=== PATIENT | female | born 1940 | race Caucasian/White ===

== ENCOUNTER 2018-10-28 04:48 | Inpatient (IN) | payer OTHER, MEDICARE ==
[~2018-10-28] VITALS: Ht 172.7 cm; Wt 76.7 kg
[2018-10-28 04:55] VITALS: Ht 172.7 cm; Wt 76.7 kg
[2018-10-28 05:49] LABS: BASOPHIL % 0.4 % (0-2); PLATELET COUNT 258 x10^3mcL (130-400); RED CELL DISTRIBUTION WIDTH 13.4 % (11.5-14.5)
[2018-10-28 05:55] LABS: CARBON DIOXIDE 27.8 mmol/L (21-32); CHLORIDE SERUM 105 mmol/L (98-107); CREATININE SERUM 1.1 mg/dL (0.6-1.0); GLUCOSE SERUM 108 mg/dL (74-106); POTASSIUM SERUM 3.7 mmol/L (3.5-5.1); SODIUM SERUM 143 mmol/L (136-145)
[2018-10-28 06:01] LABS: ALBUMIN 3.4 g/dL (3.4-5.0); ALKALINE PHOSPHATASE 92 U/L (46-116); ALT/SGPT 17 U/L (14-59); AST/SGOT 17 U/L (15-37); BILIRUBIN TOTAL 0.38 mg/dL (0.20-1.00); LIPASE 270 IU/L (73-393); TOTAL PROTEIN, SERUM 7.5 g/dL (6.4-8.2)
[2018-10-28] MEDS ORDERED: LIPI20 (08:59)
[2018-10-28] MEDS ORDERED: FLUOXETINE20 M3 (08:59)
[2018-10-28] MEDS ORDERED: NOR5 (08:59)
[2018-10-28] MEDS ORDERED: GABAPENTIN100 M2 (08:59)
[2018-10-28] MEDS ORDERED: GOOD SENSE OMEP20 MG (09:00)
[2018-10-28] MEDS ORDERED: MULTI-VITAMINS1 TAB (09:00)
[2018-10-28] MEDS ORDERED: SODIUM BICARBO650 MG (09:00)
[2018-10-28] MEDS ORDERED: COUMADIN1 MG (09:00)
[2018-10-28] MEDS ORDERED: SOTALOL HCL80 MG (09:00)
[2018-10-28 09:35] LABS: T3 TOTAL 0.95 ng/mL
[2018-10-28 09:45] LABS: CHOLESTEROL/HDL RATIO 3.7; MAGNESIUM 1.7 mg/dL (1.8-2.4); PHOSPHOROUS 3.5 mg/dL (2.5-4.9)
[2018-10-28 09:53] LABS: FREE T4 1.1 ng/dL (0.76-1.46); T4(THYROXINE) 8.5 ug/dL (4.7-13.3)
[2018-10-28 11:27] VITALS: BP 134/49
[2018-10-28 12:37] VITALS: BP 134/49
[2018-10-28 13:21] VITALS: BP 141/66
[2018-10-28 16:55] VITALS: BP 155/67
[2018-10-28 21:08] VITALS: BP 158/59
[2018-10-29 06:18] VITALS: BP 157/64
[2018-10-29 06:18] LABS: PLATELET COUNT 248 x10^3mcL (130-400)
[2018-10-29 07:24] LABS: CALCIUM 8.1 mg/dL (8.5-10.1); CARBON DIOXIDE 28.6 mmol/L (21-32); CHLORIDE SERUM 111 mmol/L (98-107); CREATININE SERUM 0.7 mg/dL (0.6-1.0); GLUCOSE SERUM 94 mg/dL (74-106); SODIUM SERUM 146 mmol/L (136-145)
[2018-10-29 09:27] VITALS: BP 154/63
[2018-10-29 11:21] LABS: BAND NEUTROPHIL 0 % (0-10); BASOPHIL 0 % (0-2); MONOCYTE 10 % (0-7); PLATELET MORPHOLOGY PLATELETS NORMAL; SEGMENTED NEUTROPHILS 40 % (37-75); rbc morphology (normal/abnorm) NORMAL (NORMAL)
[2018-10-29 12:33] VITALS: BP 180/70
[2018-10-29 13:35] VITALS: BP 169/72
[2018-10-29 16:58] VITALS: BP 167/84
[2018-10-29 20:34] VITALS: BP 139/72
[2018-10-30 05:48] VITALS: BP 161/66
[2018-10-30 07:07] LABS: MAGNESIUM 1.6 mg/dL (1.8-2.4); PHOSPHOROUS 2.5 mg/dL (2.5-4.9)
[2018-10-30 09:00] VITALS: BP 157/91
[2018-10-30 09:01] VITALS: BP 157/91
[2018-10-30 10:37] VITALS: BP 157/91
== END 2018-10-30 11:55 | disposition home or self-care (01) | DRG 390 ==
LOC: ED 04:48 → MU 08:38 → DU 08:38
PROVIDERS: Emergency Medicine; ADMIT General Practice
DX: K56.7 Ileus, unspecified (principal); K56.609 Unspecified intestinal obstruction, unspecified as to partial versus complete obstruction; K21.9 Gastro-esophageal reflux disease without esophagitis; I48.2 Chronic atrial fibrillation; I11.9 Hypertensive heart disease without heart failure; I25.10 Atherosclerotic heart disease of native coronary artery without angina pectoris; E78.5 Hyperlipidemia, unspecified; Z79.01 Long term (current) use of anticoagulants; Z95.5 Presence of coronary angioplasty implant and graft
CPT/HCPCS: 83880; 84439; C9113; J2270; J2405; J3475; J7030; J7620; Q0092

== ENCOUNTER 2019-01-10 19:08 | Inpatient (IN) | payer OTHER, MEDICARE ==
[~2019-01-10] VITALS: Ht 170.2 cm; Wt 80.7 kg
[~2019-01-10 19:08] MED LIST: COUMADIN1 MG; FLUOXETINE20 M3; GABAPENTIN100 M2; GOOD SENSE OMEP20 MG; LIPI20; MULTI-VITAMINS1 TAB; NOR5; SODIUM BICARBO650 MG; SOTALOL HCL80 MG
[2019-01-10 20:02] LABS: BASOPHIL % 0.2 % (0-2); PLATELET COUNT 307 x10^3mcL (130-400)
[2019-01-10 20:08] LABS: CALCIUM 9.4 mg/dL (8.5-10.1); CARBON DIOXIDE 26.6 mmol/L (21-32); CHLORIDE SERUM 106 mmol/L (98-107); CREATININE SERUM 1.2 mg/dL (0.6-1.0); GLUCOSE SERUM 115 mg/dL (74-106); POTASSIUM SERUM 4.3 mmol/L (3.5-5.1); SODIUM SERUM 141 mmol/L (136-145)
[2019-01-10 20:13] LABS: ALBUMIN 3.9 g/dL (3.4-5.0); ALKALINE PHOSPHATASE 113 U/L (46-116); ALT/SGPT 22 U/L (14-59); AST/SGOT 30 U/L (15-37); BILIRUBIN TOTAL 0.28 mg/dL (0.20-1.00)
[2019-01-10 20:36] LABS: UA SPECIFIC GRAVITY 1.025 (1.005-1.035); microscopic required? YES; urine erythrocyte NEGATIVE (NEGATIVE)
[2019-01-10 22:15] LABS: CHOLESTEROL/HDL RATIO 3.6; MAGNESIUM 1.8 mg/dL (1.8-2.4); PHOSPHOROUS 4.6 mg/dL (2.5-4.9)
[2019-01-10 22:18] LABS: T3 TOTAL 1.09 ng/mL
[2019-01-10 22:23] LABS: FREE T4 1.03 ng/dL (0.76-1.46); FREE THYROXINE INDEX 2.7 ug/dL (1.4-4.5)
[2019-01-10 23:38] VITALS: BP 135/58
[2019-01-11 00:55] VITALS: BP 144/76
[2019-01-11 03:38] VITALS: BP 123/62
[2019-01-11 05:17] LABS: BASOPHIL % 0.1 % (0-2); PLATELET COUNT 238 x10^3mcL (130-400); RED CELL DISTRIBUTION WIDTH 13.9 % (11.5-14.5)
[2019-01-11 05:26] LABS: CARBON DIOXIDE 25.1 mmol/L (21-32); CHLORIDE SERUM 109 mmol/L (98-107); GLUCOSE SERUM 148 mg/dL (74-106); MAGNESIUM 1.7 mg/dL (1.8-2.4); PHOSPHOROUS 3.2 mg/dL (2.5-4.9); POTASSIUM SERUM 4.3 mmol/L (3.5-5.1); SODIUM SERUM 142 mmol/L (136-145)
[2019-01-11 07:56] VITALS: BP 156/72
[2019-01-11 17:27] VITALS: BP 151/63
[2019-01-11 21:43] VITALS: BP 162/81
[2019-01-12 05:39] VITALS: BP 167/75
[2019-01-12 06:48] LABS: BASOPHIL % 0.1 % (0-2); PLATELET COUNT 235 x10^3mcL (130-400); RED CELL DISTRIBUTION WIDTH 14.1 % (11.5-14.5)
[2019-01-12 06:58] LABS: CALCIUM 9.4 mg/dL (8.5-10.1); CARBON DIOXIDE 25.6 mmol/L (21-32); CHLORIDE SERUM 107 mmol/L (98-107); CREATININE SERUM 0.7 mg/dL (0.6-1.0); GLUCOSE SERUM 131 mg/dL (74-106); MAGNESIUM 1.6 mg/dL (1.8-2.4); PHOSPHOROUS 2.6 mg/dL (2.5-4.9); POTASSIUM SERUM 3.8 mmol/L (3.5-5.1); SODIUM SERUM 144 mmol/L (136-145)
[2019-01-12 10:07] VITALS: BP 140/74
[2019-01-12 13:00] VITALS: BP 164/75
[2019-01-12 17:10] VITALS: BP 124/67
[2019-01-12 19:57] VITALS: BP 166/49
[2019-01-13 05:11] VITALS: BP 149/78
[2019-01-13 06:38] LABS: CARBON DIOXIDE 30.4 mmol/L (21-32); CHLORIDE SERUM 105 mmol/L (98-107); CREATININE SERUM 0.8 mg/dL (0.6-1.0); GLUCOSE SERUM 120 mg/dL (74-106); POTASSIUM SERUM 3.4 mmol/L (3.5-5.1); SODIUM SERUM 145 mmol/L (136-145)
[2019-01-13 07:06] LABS: BASOPHIL % 0.1 % (0-2); PLATELET COUNT 249 x10^3mcL (130-400); RED CELL DISTRIBUTION WIDTH 14.3 % (11.5-14.5)
[2019-01-13 09:51] VITALS: BP 94/56
[2019-01-13 14:50] VITALS: BP 180/81
[2019-01-13 17:49] VITALS: BP 145/79
[2019-01-13 18:46] VITALS: BP 145/79
[2019-01-13 23:15] VITALS: BP 160/83
[2019-01-14 05:30] VITALS: BP 148/73
[2019-01-14 06:27] LABS: BASOPHIL % 0.1 % (0-2); PLATELET COUNT 253 x10^3mcL (130-400); RED CELL DISTRIBUTION WIDTH 13.9 % (11.5-14.5)
[2019-01-14 06:33] LABS: CALCIUM 9.2 mg/dL (8.5-10.1); CARBON DIOXIDE 32.2 mmol/L (21-32); CHLORIDE SERUM 102 mmol/L (98-107); CREATININE SERUM 0.9 mg/dL (0.6-1.0); GLUCOSE SERUM 121 mg/dL (74-106); POTASSIUM SERUM 3.8 mmol/L (3.5-5.1); SODIUM SERUM 142 mmol/L (136-145)
[2019-01-14 08:36] VITALS: BP 177/121
[2019-01-14] MEDS ORDERED: ZIT250 PO (10:54)
[2019-01-14] MEDS ORDERED: PREDNISONE20 MG PO (10:54)
[2019-01-14 11:00] VITALS: BP 172/83
[2019-01-14] MEDS ORDERED: LISINOPRIL10 MG PO (11:20)
[2019-01-14] MEDS ORDERED: AEROECLIPSE II1 EACH MC (11:57)
[2019-01-14] MEDS ORDERED: XOP0.63 HHN (11:57)
[2019-01-14 12:20] VITALS: BP 125/54
[2019-01-14 12:22] VITALS: BP 125/54
[2019-01-14 14:12] VITALS: Ht 170.2 cm; Wt 80.7 kg
[2019-01-14 17:24] VITALS: BP 134/57
== END 2019-01-14 19:42 | disposition home or self-care (01) | DRG 193 ==
LOC: ED 19:08 → DU 21:40 → IC 21:40 → DU 01-11 11:20
PROVIDERS: Emergency Medicine; Internal Medicine; ADMIT General Practice
DX: J15.9 Unspecified bacterial pneumonia (principal); J96.02 Acute respiratory failure with hypercapnia; N17.0 Acute kidney failure with tubular necrosis; J44.1 Chronic obstructive pulmonary disease with (acute) exacerbation; G62.9 Polyneuropathy, unspecified; I48.91 Unspecified atrial fibrillation; I10 Essential (primary) hypertension; E78.1 Pure hyperglyceridemia; F41.9 Anxiety disorder, unspecified; F32.9 Major depressive disorder, single episode, unspecified; Z79.01 Long term (current) use of anticoagulants; Z68.27 Body mass index [BMI] 27.0-27.9, adult
CPT/HCPCS: 36600; 83880; 84439; 85378; 87804; 90732; J0171; J0360; J1644; J1956; J2060; J2543; J2920; J2930; J3370; J3475; J7030; J7613; J7620; J7626; Q0092

== ENCOUNTER 2019-03-01 22:21 | Inpatient (IN) | payer OTHER, MEDICARE ==
[~2019-03-01] VITALS: Ht 170.2 cm; Wt 83.0 kg
[~2019-03-01 22:21] MED LIST changes: +AEROECLIPSE II1 EACH MC; +LISINOPRIL10 MG PO; +PREDNISONE20 MG PO; +XOP0.63 HHN; +ZIT250 PO
[2019-03-01 22:48] VITALS: Ht 170.2 cm; Wt 83.0 kg
--- NOTE | 2019-03-01 23:30 | NUR ---
PT. IN ED WITH C/O FEELING SOB SINCE YESTERDAY. PT. REPRORTS SHE WAS HERE IN ED IN DECEMBER FOR COUGH. WAS ADMITTED AND STATES COUGH NEVER COMPLETLY WENT AWAY AND SHE'S HAD IT SINCE DECEMBER. REPORTS COUGH HAS WORSENED OVER PAST FEW DAYS AND STARTED FEELING SOB TODAY. PT. AAOX4, TALKING AND RESPONDING APPROPRIATELY, BREATHING E/U. SPEAKING IN FULL CLEAR SENTENCES. PLACED ON FULL AVIATION TECHNICAL SYSTEMS SPECIALIST. AND OXYGEN AT 2L VIA NC DUE TO OXYGEN SAT AT 90'S ON ROOM AIR. CALL LIGHT IN REACH. WILL CONTINUE TO MONITOR.
--- NOTE | 2019-03-01 23:40 | NUR ---
RT AT BEDSIDE FOR BREATHING TX. PT. TOLERATING WELL.
--- NOTE | 2019-03-02 00:07 | NUR ---
PT. MEDICATED PER. E-MAR. CALL LIGHT IN REACH. WILL CONTINUE TO MONITOR.
[2019-03-02 00:16] LABS: BASOPHIL % 0.3 % (0-2); PLATELET COUNT 246 x10^3mcL (130-400); RED CELL DISTRIBUTION WIDTH 13.6 % (11.5-14.5)
--- NOTE | 2019-03-02 00:25 | NUR ---
PT. REPROTS SHE IS FEELING BETTER AFTER BREATHING TREATMENT. CALL LIGHT IN REACH. WILL CONTINUE TO MONITOR
[2019-03-02 00:26] LABS: microscopic required? NO
[2019-03-02 00:28] LABS: CALCIUM 8.8 mg/dL (8.5-10.1); CARBON DIOXIDE 29.1 mmol/L (21-32); CHLORIDE SERUM 105 mmol/L (98-107); CREATININE SERUM 2.1 mg/dL (0.6-1.0); GLUCOSE SERUM 122 mg/dL (74-106); POTASSIUM SERUM 4.2 mmol/L (3.5-5.1); SODIUM SERUM 141 mmol/L (136-145)
[2019-03-02 00:33] LABS: ALBUMIN 3.6 g/dL (3.4-5.0); ALKALINE PHOSPHATASE 79 U/L (46-116); ALT/SGPT 25 U/L (14-59); AST/SGOT 19 U/L (15-37); BILIRUBIN TOTAL 0.3 mg/dL (0.20-1.00); TOTAL PROTEIN, SERUM 6.8 g/dL (6.4-8.2)
[2019-03-02 00:35] LABS: UA SPECIFIC GRAVITY 1.015 (1.005-1.035); urine erythrocyte NEGATIVE (NEGATIVE)
[2019-03-02 01:12] LABS: MAGNESIUM 1.7 mg/dL (1.8-2.4); PHOSPHOROUS 3.5 mg/dL (2.5-4.9)
--- NOTE | 2019-03-02 01:25 | NUR ---
PT. LAYING ON GURNEY IN POSITION OF COMFORT. BREATHING E/U. REPORTS SONI 12/25 AND REQUEST TYLENOL. GIVEN PER PRN ORDERS. CALL LIGHT IN REACH. WILL CONTINUE TO MONITOR.
--- NOTE | 2019-03-02 01:33 | NUR ---
REPORT GIVEN TO JAMIE CASEY FOR FURTHER CARE OF PATIENT. ALL QUESTIONS AND CONCERNS ADDRESSED.
--- NOTE | 2019-03-02 02:15 | NUR ---
RECIEVED PATIENT FROM ED VIA GURNEY. PATIENT ABLE TO AMBULATE TO BED, SLOW UNSTEADY GAIT. A/O X4. NO SOB ON 2L NC. SATTING 95%. PATIENT IS CONGESTED WITH PRODUCTIVE COUGH. LUNGS CLEAR IN BILATERAL UPPER LOBES, DIMINISHED AT THE BASES. ON TEL 18, NSR. DENIES PAIN, STATES HER SONI WAS RESOLVED FROM TYLENOL DOWNSTAIRS. DENIES N/V. HAD REGULAR BM THIS MORNING. NO EDEMA NOTED, PULSES MODERATE. SKIN WARM, DRY AND INTACT. PATIENT ORIENTED TO ROOM AND USE OF CALL LIGHT, EDUCATED ON SAFETY AND FALL RISK MEASURES. BED LOCKED AND IN LOWEST POSIITON. CALL LIGHT WITHIN REACH.
[2019-03-02 02:18] VITALS: BP 152/68
--- NOTE | 2019-03-02 02:20 | NUR ---
PT. TRANSFERED TO [facility] FOR FURTHER CARE AND EVAL. PT. AAOX4, TALKING AND RESPONDING APPROPRIATELY, BREATHING E/U. NOT IN ANY APPARENT DISTRESS. STABLE AT TIME OF TRANSFER. PT. TRANSFERED BY CHIOMA CASEY AND MAIK DHALIWAL.
[2019-03-02 03:48] VITALS: BP 132/60
--- NOTE | 2019-03-02 06:24 | NUR ---
PATIENT GIVEN TYLENOL PER EMAR FOR REPORT OF 5/10 SONI.
--- NOTE | 2019-03-02 06:31 | NUR ---
NO FURTHER SIGNIFICANT EVENTS THIS SHIFT. IV TO LAC IS INFUSING WITHOUT ERYTHEMA OR INFILTRATION. NSR 73. CALL LIGHT WITHIN REACH. BED LOCKED AND IN LOWEST POSIITON. WILL ENDORSE CARE TO DAYSHIFT NURSE.
[2019-03-02 06:39] LABS: BASOPHIL % 0.1 % (0-2); PLATELET COUNT 206 x10^3mcL (130-400); RED CELL DISTRIBUTION WIDTH 14.1 % (11.5-14.5)
[2019-03-02 06:47] LABS: CALCIUM 8.6 mg/dL (8.5-10.1); CARBON DIOXIDE 22.8 mmol/L (21-32); CHLORIDE SERUM 109 mmol/L (98-107); CREATININE SERUM 1.9 mg/dL (0.6-1.0); GLUCOSE SERUM 152 mg/dL (74-106); POTASSIUM SERUM 4.9 mmol/L (3.5-5.1); SODIUM SERUM 143 mmol/L (136-145)
--- NOTE | 2019-03-02 08:40 | NUR ---
RECEIVED PATIENT FROM [facility] REGISTRY AGENCY NURSE. PATIENT A/ERT/ORIENTED X4; CLEAR SPEECH. TELE#18, SR W/ PAC. HR = 70. DENIED CHEST PAIN. OCCASINAL PRODUCTIVE COUGHING. SMALL GREYISH SPUTUM SEEN. BREATHING SOUND DIMINISHED SHAUNA BASES. FINE CRACKLES L SIDE. O2 SAT 90% ON RA. IMPROVED TO 98% ON 2L VIA N/C. RE PROTOCOL. B/P = 88/44. BUT PATIENT'S SKIN WARM TO TOUCH AND PINK IN COLOR. DENIED DIZZINESS. FINISHED 100% OF REGULAR DIET BREAKFAST. IVF OF NS 70CC/HR. IV SITE TO LAC INTACT. AMBULATED WITH PHYSICAL THERAPIST. SKIN INTACT. CALL LIGHT IN REACH.
[2019-03-02 10:00] VITALS: BP 94/44
--- NOTE | 2019-03-02 10:50 | NUR ---
DR. ARCHER AND MEDICAL TEAM MED MORNING ROUND. REPORTED TO DOCTOR - PATIENT'S ANTIHYPERTENSIVES HOLD DUE TO B/P LOW.
--- NOTE | 2019-03-02 11:17 | NUR ---
MAG RIDER 2 GM IV GIVEN.
[2019-03-02 11:56] VITALS: BP 99/49
[2019-03-02 17:31] VITALS: BP 119/78
--- NOTE | 2019-03-02 19:00 | NUR ---
SPUTUM CULTURE REJECTED BY [facility] DUE TO SPECIMEN NOT ENOUGH. PATIENT GENERAL CONDITION IMPROVING. NO SOB. O2 SAT 93% ON RA. RT PROTOCOL. B/P =119/78. VOID X2 VIA BRP. ENDORSED CARE TO NOC NURSE.
--- NOTE | 2019-03-02 19:30 | NUR ---
REC'D PT FROM DAY NURSE. PT RESTING IN BED. AAOX4, SPEECH CLEAR, FOLLOWS COMMANDS. TELE 18. DENIES CP, DIZZINESS, OR PALPITATIONS. DENIES RESP DISTRESS OR SOB. BREATHING EVEN/UNLABORED ON 2L O2 VIA NC, SPO2 97%. REPORTS PRODUCTIVE COUGH AT TIMES WITH SCANT/MINIMAL WHITE SPUTUM. SPECIMEN UP AT BEDSIDE FOR SPUTUM COLLECTION. ABD SOFT/ROUND. DENIES ABD PAIN, TENDERNESS, OR N/V. VOIDING FREELY. MILD GEN WEAKNESS. AMBULATORY. SKIN INTACT. IV TO LAC PATENT AND INFUSING, SITE WNL. CALL LIGHT WITHIN REACH, BED AT LOWEST POSITION. WILL CONTINUE TO MONITOR.
[2019-03-02 21:38] VITALS: BP 148/64
--- NOTE | 2019-03-02 22:48 | NUR ---
PT C/O SONI 03/27, PRESSURE-LIKE TO FRONT OF THE HEAD. ATTEMPTED TO GIVE NORCO BUT PT REFUSED D/T ALLERGY TO CODEINE. DR. RATLIFF MADE AWARE AND REQUESTED IBUPROFEN. ALSO MADE AWARE NO AM LABS ORDERED.
--- NOTE | 2019-03-02 23:10 | NUR ---
DR. RATLIFF AND MYSELF AT BEDSIDE. RESIDENT EXPLAINED SHE IS UNABLE TO GIVE IBUPROFEN D/T RISK FOR BLEEDING SINCE THE PT IS ON COUMADIN. PT VERBALIZED UNDERSTANDING AND AGREED TO TAKE TYLENOL. RESIDENT WILL ALSO ORDER MUCINEX FOR CONGESTION AND SLEEP AID.
[2019-03-02 23:39] LABS: AMPHETAMINE QUAL UR NONE DETECTED (See below)
--- NOTE | 2019-03-03 00:31 | NUR ---
PT AWAKE AND RESTING IN BED WATCHING TV. REPORTS SONI IS GETTING BETTER. ENCOURAGED TO TURN THE LIGHT OFF AND SLEEP BUT PT SAYS SHE IS "TOO INTO THE SHOW." BREATHING EVEN/UNLABORED ON RA. NO S/SX OF PAIN OR DISTRESS. CALL LIGHT WITHIN REACH, BED AT LOWEST POSITION. WILL CONTINUE TO MONITOR.
--- NOTE | 2019-03-03 02:03 | NUR ---
PT RESTING IN BED WITH EYES CLOSED. LAYING ON R SIDE. NO SIGNS OF DISTRESS NOTED. BREATHING EVEN/UNLABORED ON RA. CALL LIGHT WITHIN REACH, BED AT LOWEST POSITION. WILL CONTINUE TO MONITOR.
--- NOTE | 2019-03-03 05:24 | NUR ---
PT AWAKE AND RESTING IN BED. AM RESIDENT AT BEDSIDE TO SPEAK TO THE PT. NO COMPLAINTS AT THIS TIME. DENIES RESP DISTRESS OR SOB. SPO2 91-92% ON RA, 2L NC APPLIED. SPO2 UP TO 97%. PT SPAT INTO THE SPECIMEN CUP BUT APPEARS TO BE ONLY SPIT, SMALL CLEAR/WHITE. ENCOURAGED TO COUGH UP PHLEGM IF POSSIBLE. NO SIGNIFICANT CHANGES DURING SHIFT. CALL LIGHT WITHIN REACH, BED AT LOWEST POSITION. WILL ENDORSE TO DAY NURSE.
[2019-03-03 05:43] VITALS: BP 153/67
[2019-03-03 06:47] LABS: BASOPHIL % 0.1 % (0-2); PLATELET COUNT 199 x10^3mcL (130-400); RED CELL DISTRIBUTION WIDTH 14.3 % (11.5-14.5)
[2019-03-03 07:28] LABS: CALCIUM 8.8 mg/dL (8.5-10.1); CARBON DIOXIDE 22.6 mmol/L (21-32); CHLORIDE SERUM 111 mmol/L (98-107); CREATININE SERUM 0.9 mg/dL (0.6-1.0); GLUCOSE SERUM 113 mg/dL (74-106); SODIUM SERUM 145 mmol/L (136-145)
[2019-03-03 07:31] LABS: MAGNESIUM 1.9 mg/dL (1.8-2.4); PHOSPHOROUS 2.7 mg/dL (2.5-4.9)
--- NOTE | 2019-03-03 08:04 | NUR ---
PT SITTING UP EATING BREAKFAST. AA/OX4. DENIES SOB AT THIS TIME. INSPIRATORY AND EXPIRATORY WHEEZES HEARD BILATERALLY ON ROOM AIR. RR EVEN/UNLABORED. CHEST EXPANSION SYMMETRICAL. PT VERBALIZED UNDERSTANDING OF I.S. USE/PURPOSE. REACHING 2000ML, GOAL 2500ML. NO CHEST PAIN. NO DIZZINESS. REPORTS SONI, ACHING, WORSE AFTER SLEEPING. WILL GIVE TYLENOL WITH AM MEDS. NO N/V. CALM/COOPERATIVE. IV WNL TO LAC, IV FLUIDS FLOWING. PT CALM/COOPERATIVE. INSTRUCTED TO USE CALL LIGHT TO CALL FOR ASSISTANCE PRN. VERBALIZED UNDERSTANDING. WILL CONTINUE TO MONITOR.
[2019-03-03 08:38] VITALS: BP 183/82
--- NOTE | 2019-03-03 10:25 | NUR ---
PT RESTING IN BED WITH BOTH EYES CLOSED. NO S/S OF ACUTE DISTRESS. NO SOB ON ROOM AIR. NO CHEST PAIN. CALM/COOPERATIVE. NO N/V. NO CHILLS. NO FEVER. BED IN LOW POSITION. CALL LIGHT WITHIN. WILL CONTINUE TO MONITOR.
[2019-03-03 11:37] VITALS: BP 155/85
--- NOTE | 2019-03-03 15:32 | NUR ---
PT AMBULATORY IN HALLWAYS. TOLERATING ACTIVITY WELL. NO SOB ON ROOM AIR. NO COMPLAINT OF PAIN. NO S/S OF ACUTE DISTRESS. AA/OX4. NO COUGH AT THIS TIME. WILL CONTINUE TO MONITOR.
[2019-03-03 16:13] VITALS: BP 147/81
--- NOTE | 2019-03-03 18:26 | NUR ---
PT LAYING IN BED WITH HOB ELEVATED. AA/OX4. NO S/S OF ACUTE DISTRESS. NO SOB ON ROOM AIR. DRY COUGH NOTED. NO CHEST PAIN. IV WNL TO LFA, PATENT AND FLUSHES WELL. SALINE LOCKED. MED-SURG. CALM/COOPERATIVE. SIDE RAILS UP X2. TOLERATING REGULAR DIET WELL. ATE 100% OF DINNER. BED IN LOW POSITION. CALL LIGHT WITHIN REACH. WILL ENDORSE TO ONCOMING SHIFT.
--- NOTE | 2019-03-03 20:33 | NUR ---
MD GRAMAJO PT TO SHOWER , PT'S IN THE SHOWER AT THE MOMENT , HL COVERED .
--- NOTE | 2019-03-03 20:35 | NUR ---
AT 2020 RECEIVED PT IN BED AAOX4 NO RESP DISTRESS NOTED AT THE MOMENT , LUNG SOUNDS DIMINSHED .ABD SOFT BS ACTIVE X4, ON TELE NUMBER 18 THAT SHOWS NSR WITH OCCATIONAL PACS, PT DENY CHEST PAIN AT THE MOMENT, PT HAS HL TO LFA INTACT FLUSHING WELL, PT REQUESTING TO SHOWER , WILL NOTIFY MD. NO ACUTE DISTRESS NOTED, CALL LIGHT WITHIN PT'S REACH .
[2019-03-03 21:22] VITALS: BP 142/64
--- NOTE | 2019-03-04 00:59 | NUR ---
POST FRANKIE PT'S IN BED WITH EYES CLOSED , TELE NSR .
[2019-03-04 04:49] VITALS: BP 147/75
--- NOTE | 2019-03-04 05:53 | NUR ---
SCHEDULED ABX ADMINISTERED THIS TIME, PATIENT INFORMED OF ITS PURPOSE AND ACTION PRIOR. FLUSHED HEPLOCK WELL NO RESISTANCE ENCOUNTERED.
--- NOTE | 2019-03-04 06:07 | NUR ---
PT C/O HEADACHE 04/27 MEDICATED PT WITH NORCO 7.5/325 PO .
--- NOTE | 2019-03-04 06:09 | NUR ---
I HAVE REVIEWED THE DATA COLLECTION BY YAZ (NAME):GEOVANNY PATEL ENTERED ON (DATE/TIME):03/03/19 @ 2032&2020 I CONCUR WITH THE DATA AND ANY EXCEPTIONS OR COMMENTS ARE LISTED BELOW:
--- NOTE | 2019-03-04 06:09 | NUR ---
PATIENT'S PLAN OF CARE WAS DISCUSSED AND REVIEWED WITH 911 OPERATOR:GEOVANNY PATEL
--- NOTE | 2019-03-04 06:45 | NUR ---
POST NORCO PT DENY PAIN , PT'S IN BED NO RESP DISTRESS NOTED, ALL DUE MEDS GIVEN NO REACTION NOTED , TELE NSR , HL PATENT . CALL LIGHT WITHIN PT'S REACH .
[2019-03-04 06:56] LABS: BASOPHIL % 0.5 % (0-2); PLATELET COUNT 252 x10^3mcL (130-400); RED CELL DISTRIBUTION WIDTH 14.4 % (11.5-14.5)
[2019-03-04 07:07] LABS: CALCIUM 9.8 mg/dL (8.5-10.1); CARBON DIOXIDE 29.8 mmol/L (21-32); CHLORIDE SERUM 105 mmol/L (98-107); CREATININE SERUM 0.8 mg/dL (0.6-1.0); GLUCOSE SERUM 89 mg/dL (74-106); POTASSIUM SERUM 3.7 mmol/L (3.5-5.1); SODIUM SERUM 145 mmol/L (136-145)
--- NOTE | 2019-03-04 07:10 | NUR ---
[facility] PT FOUND RESTING IN BED WITH BOTH EYES CLOSED. NO S/S OF ACUTE DISTRESS. NO SOB ON ROOM AIR. NO COUGH AT THIS TIME. CHEST EXANSION SYMMETRICAL. NO S/S OF PAIN. IV WNL TO LFA, SALINE LOCKED. SIDE RAILS UP X2. BED IN LOW POSITION. CALL LIGHT WITHIN REACH. WILL CONTINUE TO MONITOR.
[2019-03-04 08:08] VITALS: BP 143/78
--- NOTE | 2019-03-04 11:02 | NUR ---
PT LAYING IN BED. AA/OX4. NO COMPLAINT OF PAIN. NO SOB ON ROOM AIR. NO CHEST PAIN. CALM/COOPERATIVE. NO N/V. NO FEVER. NO CHILLS. AMBULATORY TO RESTROOM WITH FULL ROM, GAIT STEADY. AT BEDSIDE. IV WNL TO LFA, SALINE LOCKED. BED IN LOW POSITION. CALL LIGHT WITHIN REACH. WILL CONTINUE TO MONITOR.
[2019-03-04] MEDS ORDERED: ZITHROMAX500 MG PO (11:34)
[2019-03-04] MEDS ORDERED: MEDDP PO (11:35)
[2019-03-04 11:48] VITALS: BP 154/66
[2019-03-04 12:06] VITALS: BP 154/66
[2019-03-04 13:41] VITALS: BP 149/85
--- NOTE | 2019-03-04 13:50 | NUR ---
PT DISCHARGED TO HOME. AWAKE, ALERT, ORIENTED X4. NO SOB ON ROOM AIR. O2 SAT 97%. RR EVEN/UNLABORED. CHEST EXPANSION SYMMETRICAL. DENIES SOB. NO CHEST PAIN. NSR ON TELE, HR 87. NO N/V. NO SONI. NO DIZZINESS. AMBULATORY TO RESTROOM, GAIT STEADY. HAD BM X2. IV WNL TO LFA, IV REMOVED, CATHETER IN TACT. PRESSURE APPLIED. SITE WNL. TELE REMOVED. DISCHARGE EDUCATION PROVIDED TO PT. INSTRUCTED TO FOLLOW UP WITH PCP AT UPCOMING APPT. PT SAYS SHE WILL MAKE FOLLOW UP APPT TO SEE NEW PCP AND CANCEL WITH PREVIOUS PCP. PRESCRIPTION PROVIDED TO PT. BELONGINGS WITH PATIENT. VS STABLE. PT CALM/COOPERATIVE. ACCOMPANIED BY . ESCORTED TO DISCHARGE LOBBY BY IMTIAZ SERRANO, TAKEN BY WHEEL CHAIR.
== END 2019-03-04 13:50 | disposition home health service (06) | DRG 177 ==
LOC: ED 22:21 → DU 03-02 00:30
PROVIDERS: Emergency Medicine; Internal Medicine; ADMIT Internal Medicine
DX: J69.0 Pneumonitis due to inhalation of food and vomit (principal); J96.01 Acute respiratory failure with hypoxia; N17.0 Acute kidney failure with tubular necrosis; J44.9 Chronic obstructive pulmonary disease, unspecified; E83.42 Hypomagnesemia; I48.91 Unspecified atrial fibrillation; F41.8 Other specified anxiety disorders; I10 Essential (primary) hypertension; M75.50 Bursitis of unspecified shoulder; Z68.26 Body mass index [BMI] 26.0-26.9, adult; Z95.1 Presence of aortocoronary bypass graft; Z79.01 Long term (current) use of anticoagulants
CPT/HCPCS: 83880; 94150; G0378; J0456; J0696; J2270; J2405; J2543; J2930; J3370; J3475; J7030; J7050; J7620; Q0092

== ENCOUNTER 2019-04-09 17:26 | Emergency (ER) | payer OTHER, MEDICARE ==
[~2019-04-09] VITALS: Ht 172.7 cm; Wt 77.1 kg
[~2019-04-09 17:26] MED LIST changes: +MEDDP PO; +ZITHROMAX500 MG PO
[2019-04-09 17:32] VITALS: Ht 172.7 cm; Wt 77.1 kg
[2019-04-09 19:34] LABS: BASOPHIL % 0.5 % (0-2); PLATELET COUNT 283 x10^3mcL (130-400); RED CELL DISTRIBUTION WIDTH 14.5 % (11.5-14.5)
[2019-04-09 19:39] LABS: CALCIUM 8.6 mg/dL (8.5-10.1); CARBON DIOXIDE 26.8 mmol/L (21-32); CHLORIDE SERUM 104 mmol/L (98-107); CREATININE SERUM 1.1 mg/dL (0.6-1.0); GLUCOSE SERUM 89 mg/dL (74-106); POTASSIUM SERUM 3.4 mmol/L (3.5-5.1); SODIUM SERUM 142 mmol/L (136-145)
[2019-04-09 19:48] LABS: ALBUMIN 3.7 g/dL (3.4-5.0); ALKALINE PHOSPHATASE 73 U/L (46-116); ALT/SGPT 20 U/L (14-59); AMYLASE 96 U/L (25-115); AST/SGOT 20 U/L (15-37); BILIRUBIN TOTAL 0.6 mg/dL (0.20-1.00); LIPASE 178 IU/L (73-393); TOTAL PROTEIN, SERUM 7.1 g/dL (6.4-8.2)
[2019-04-09 21:35] VITALS: BP 144/72
== END 2019-04-09 21:35 | disposition home or self-care (01) ==
LOC: ED 17:26
PROVIDERS: Specialist
DX: R10.32 Left lower quadrant pain (principal); R11.0 Nausea; I10 Essential (primary) hypertension; E78.5 Hyperlipidemia, unspecified; Z88.2 Allergy status to sulfonamides; Z88.8 Allergy status to other drugs, medicaments and biological substances; Z88.5 Allergy status to narcotic agent; Z88.1 Allergy status to other antibiotic agents; Z91.040 Latex allergy status
CPT/HCPCS: J1885; J2405; J7030

== ENCOUNTER 2019-05-21 13:00 | Inpatient (IN) | payer OTHER, MEDICARE ==
[~2019-05-21] VITALS: Ht 170.2 cm; Wt 74.4 kg
--- NOTE | 2019-05-21 13:22 | NUR ---
PT IN ED FOR BLQ PAIN BUT MORE SEVERE ON LT SIDE SINCE THIS AM. STS "I HAVE A SPASMODIC COLON." STS HAD ONE BM THAT "LOOKED LIKE SYRUP" AND STS WAS DARK AND BROWN." STS CRAMPING AND PAIN IS CONSTANT. REPORTS HX OF BOWEL SX AND SBO X10 YRS AGO. AT BEDSIDE.
[2019-05-21 13:57] LABS: BASOPHIL % 0.3 % (0-2); PLATELET COUNT 254 x10^3mcL (130-400); RED CELL DISTRIBUTION WIDTH 13.9 % (11.5-14.5)
[2019-05-21 14:21] LABS: CALCIUM 8.4 mg/dL (8.5-10.1); CARBON DIOXIDE 28.6 mmol/L (21-32); CHLORIDE SERUM 105 mmol/L (98-107); CREATININE SERUM 1.4 mg/dL (0.6-1.0); GLUCOSE SERUM 129 mg/dL (74-106); POTASSIUM SERUM 4.2 mmol/L (3.5-5.1); SODIUM SERUM 140 mmol/L (136-145)
[2019-05-21 14:25] LABS: ALBUMIN 3.6 g/dL (3.4-5.0); ALKALINE PHOSPHATASE 85 U/L (46-116); ALT/SGPT 19 U/L (14-59); AMYLASE 181 U/L (25-115); AST/SGOT 21 U/L (15-37); BILIRUBIN TOTAL 0.5 mg/dL (0.20-1.00); LIPASE 646 IU/L (73-393); TOTAL PROTEIN, SERUM 6.9 g/dL (6.4-8.2)
--- NOTE | 2019-05-21 14:55 | NUR ---
PT TO CT SCAN
[2019-05-21] MEDS ORDERED: CILOSTAZOL50 M1 PO (15:08)
[2019-05-21] MEDS ORDERED: ZOLOFT25 MG PO (15:09)
[2019-05-21] MEDS ORDERED: FLUOXETINE40 MG PO (15:09)
--- NOTE | 2019-05-21 15:36 | NUR ---
REPORT GIVEN TO ANGELA CASEY, UPDATED ON STATUS, LABS AND VITALS. PT STABLE FOR TRANSFER. ROSEMARY KATZ AWARE TO TAKE PT TO [facility].
--- NOTE | 2019-05-21 16:41 | NUR ---
PT TRANSFERRED TO FLOOR AT THIS TIME. CN NOTIFIED OF DELAY.
--- NOTE | 2019-05-21 16:45 | NUR ---
PT WAS RECEIVED BY PRIMARY NURSE ANGELA FROM ED VIA [facility], CAME IN DUE TO ABDOMINAL PAIN. AAOX4. DENIES HEADACHE/DIZZINESS. ABLE TO FOLLOW COMMANDS. NO SOB NOTED, LUNG SOUNDS CTA. DENIES CHEST PAIN/PRESSURE. DENIES ABDOMINAL PAIN/NAUSEA/VOMITING. PT STATED THAT SHE HAD A DARK BROWN SYRUP BM TODAY AND PER PT SHE CAN'T REMEMBER THE LAST TIME SHE HAD A NORMAL BM. BOWEL SOUNDS ACTIVE. ABDOMEN IS SOFT. IV SITE PATENT AND INTACT. SIDE RAILS UPX2. CALL LIGHT ON REACH. HOB ELEVATED AT 30 DEG. AZEEMAMIVAN MILLER AT BEDSIDE FOR CONTINUITY OF CARE
--- NOTE | 2019-05-21 16:47 | NUR ---
RECEIVED PATIENT FROM ED, AWAKE/ALERT AND ORIENTED X4, PATIENT AMBULATORY. DENIES ABDOMEN PAIN AT THIS TIME. IV TO RAC INTACT AND SL NOTED. CALL LIGHT EXPLAINED. BED LOW IN POSITION. AT BEDSIDE. PATIENT'S BELONGINGS BAG ON BEDSIDE TABLE. CONT TO MONITOR.
[2019-05-21 17:05] VITALS: BP 179/70
[2019-05-21 17:07] VITALS: Ht 170.2 cm; Wt 74.4 kg
--- NOTE | 2019-05-21 17:41 | NUR ---
REPORT TO LEAH LEON PATIENT BP 179/70 WILL RESUME PATIENT HOME MED.
--- NOTE | 2019-05-21 18:16 | NUR ---
NORVASC 5MG PO ADMINISTERED, LAC IV DISPOSITION, ADJUST WITH PILLOW ABLE TO FLUSH, CONT IVF ORDERED. NEEDS MET. CALL CRISTINA FR[place].
[2019-05-21 22:40] VITALS: BP 189/85
--- NOTE | 2019-05-21 22:46 | NUR ---
RECEIVED REPORT FROM DAY SHIFT NURSE. PT IS A/O X4. SPEECH IS CLEAR. DENIES SONI. DENIES CP. PULSES ARE PALAPLE. NO EDEMA PRESENT. BREATHING IS EVEN AND UNLABORED ON RA. DENIES SOB. LUNG SOUNDS CTA. ABD IS SOFT AND NONDISTENDED. BS ACTIVE IN ALL 4Q. DENIES PAIN ON ABD AT THIS TIME. BRP. AMBULATORY. STEADY GAIT AND BALANCE. SKIN INTACT. IV TO RAC DRY AND INTACT. NO REDNESS OR SWELLING. INFUSING WELL. BED IN LOWEST POSITION. CALL LIGHT WITHIN REACH. WILL CONTINUE TO MONITOR.
--- NOTE | 2019-05-21 22:49 | NUR ---
PTS BP IS 189/[address] MARIE. AWAITING ORDERS.
--- NOTE | 2019-05-21 22:50 | NUR ---
PT C/O ABD PAIN AND HEADACHE AT 2099. MEDICATED PER OCT. REASSESSED AND PT DENIES PAIN AT THIS TIME. WILL CONTINUE TO MONITOR.
--- NOTE | 2019-05-21 23:02 | NUR ---
PAGE GATED DR MARIE ABOUT PTS BP AND THE REQUEST FOR SLEEPING PILL. AWAITING ORDERS.
--- NOTE | 2019-05-21 23:09 | NUR ---
SPOKE TO DR. MARIE, STATED HE WILL PUT ORDERS IN. AWAITING ORDERS.
[2019-05-22 00:27] VITALS: BP 134/60
--- NOTE | 2019-05-22 00:29 | NUR ---
RECHECKED BP AFTER ADMINISTERING APRESOLINE 10MG. BP 134/60 HR 55. WILL CONTINUE TO MONITOR.
--- NOTE | 2019-05-22 02:13 | NUR ---
PT IS RESTING IN BED WITH EYES CLOSED BUT IS EASILY AROUSABLE WHEN SPOKEN TO. BREATHING IS EVEN AND UNLABORED. NO SIGNS OF ACUTE DISTRESS. BED IN LOWEST POSITION. CALL LIGHT WITHIN REACH. WILL CONTINUE TO MONITOR.
--- NOTE | 2019-05-22 04:13 | NUR ---
PT IS RESTING WITH EYES CLOSED BUT EASILY AROUSABLE WHEN SPOKEN TO. BREATHING IS EVEN AND UNLABORED. NO SIGNS OF RESP DISTRESS. BED IN LOWEST POSITION. CALL LIGHT WITHIN REACH. WILL CONTINUE TO MONITOR.
--- NOTE | 2019-05-22 04:52 | NUR ---
PT SLEPT IN INTERVALS THROUGHOUT THE NIGHT. PT COMPLIED WITH NURSING CARE THROUGHOUT SHIFT W/ NO ACUTE EVENTS OVERNIGHT. COMFORT AND SAFETY MEASURES MAINTAINED. ALL NEEDS ASSESSED AND ATTENDED TO. WILL CONTINUE TO MONITOR AND ENDORSE CARE TO DAY SHIFT NURSE.
[2019-05-22 05:40] VITALS: BP 163/64
[2019-05-22 06:50] LABS: BASOPHIL % 0.4 % (0-2); PLATELET COUNT 209 x10^3mcL (130-400); RED CELL DISTRIBUTION WIDTH 13.5 % (11.5-14.5)
--- NOTE | 2019-05-22 07:12 | NUR ---
ENDORSED CARE TO JOSÉ LUIS CASEY.
--- NOTE | 2019-05-22 07:26 | NUR ---
RECEIVED PATIENT FROM CARMELA CASTILLO. PATIENT SLEEPING IN BED AT THIS TIME, NO SIGNS OF DISTRESS. WILL UPDATE PATIENT TO PLAN FOR TODAY AND AWAIT FOR LEAH LEON AND DR JOEL TO COME IN AND SPEAK W PATIENT. CALL LIGHT IN REACH AT THIS TIME.
[2019-05-22 07:38] LABS: CALCIUM 8.1 mg/dL (8.5-10.1); CARBON DIOXIDE 29.6 mmol/L (21-32); CHLORIDE SERUM 108 mmol/L (98-107); GLUCOSE SERUM 89 mg/dL (74-106); MAGNESIUM 1.6 mg/dL (1.8-2.4); SODIUM SERUM 145 mmol/L (136-145)
[2019-05-22 09:13] VITALS: BP 155/81
--- NOTE | 2019-05-22 09:50 | NUR ---
LEAH LEON AND DR CARBAJAL IN TO SPEAK WITH PATIENT ABOUT PLAN OF TREATMENT. DR CARBAJAL STATES HE WILL CONTINUE TO TREAT SYMPTOMS W IV ANTIBIOTICS. PATIENT STATES SHE IS ANXIOUS WO HER MEDICATIONS AND WOULD LIKE TO SHOWER. AM MEDICATIONS ADMINISTERED AND LEAH LEON AWARE FOR REQUEST FOR SHOWER. CALL LIGHT IN REACH.
[2019-05-22 16:09] VITALS: BP 154/76
--- NOTE | 2019-05-22 16:57 | NUR ---
PATIENT IN BED, NO COMPLAINTS AT THIS TIME, NO ABDOMINAL PAIN OBSERVED THROUGHOUT SHIFT. TOLERATING PO MEDS AND LUNCH TRAY. CALL LIGHT IN REACH AT THIS TIME.
--- NOTE | 2019-05-22 18:47 | NUR ---
PATIENT IN BED, USING HOSPITAL PHONE. NO OTHER SIGNS OF PAIN OR DISCOMFORT. PRN TORADOL EFFECTIVE. WILL ENDORSE TO ONCOMING NURSE. CALL LIGHT IN REACH.
--- NOTE | 2019-05-22 19:20 | NUR ---
RECEIVED REPORT FROM CARMELA ORDONEZ. PT IS AAOX4. PT WAS LAYING IN BED WITH HOB ELEVATED. PT USES HEARING AID IN RIGHT EAR. PT IS MED-SURG, NO TELE. PT DENIES ANY S/S OF CHEST PAIN OR DISCOMFORT AT THIS TIME. PULSES ARE PALPABLE AND NO EDEMA PRESENT. PT BREATHING IS EVEN AND UNLABORED. LUNG SOUNDS ARE CTA AND IS ON RA. PT DENIES ANY SOB OR RESPIRATORY DISTRESS AT THIS TIME. BOWEL SOUNDS ARE ACTIVE X4. ABD IS SOFT AND ROUND. LBM-05/21/19 AND DARK BROWN SYRUP. PT VOIDS FREELY IN BATHROOM. PT DENIES ANY N/V AT THIS TIME. PT HAS GENERALIZED WEAKNESS AND IS AMBULATORY WITH SOME ASSIST. PT IS ABLE TO REPOSITION SELF IN BED. SKIN IS INTACT. PT RAC 20G IV IS PATENT AND WNL. CALL LIGHT WITHIN REACH. BED IN LOWEST POSITION. WILL CONTINUE TO MONITOR.
--- NOTE | 2019-05-22 20:22 | NUR ---
CALLED DR. MARIE. PT IS REQUESTING SLEEPING PILL. WILL PUT IN ORDERS. WILL CARRY OUT ORDERS AFTERWARDS.
[2019-05-22 21:03] VITALS: BP 140/68
[2019-05-23 05:52] VITALS: BP 162/60
--- NOTE | 2019-05-23 06:15 | NUR ---
PT COMPLIED WITH NURSING CARE THROUGHOUT SHIFT. PT SLEPT MOST OF THE NIGHT, BUT EASILY AROUSABLE. NO ACUTE EVENTS OVERNIGHT. COMFORT AND SAFETY MEASURES MAINTAINED. ALL NEEDS AND CONCERNS ADDRESSED. IV SITE PATENT AND WNL. PT DENIES ANY S/S OF PAIN AT THIS TIME. WILL CONTINUE TO MONITOR. WILL ENDORSE CARE TO DAY SHIFT NURSE.
[2019-05-23 06:21] LABS: BASOPHIL % 0.4 % (0-2); PLATELET COUNT 217 x10^3mcL (130-400); RED CELL DISTRIBUTION WIDTH 13.5 % (11.5-14.5)
[2019-05-23 06:40] LABS: CALCIUM 8.5 mg/dL (8.5-10.1); CARBON DIOXIDE 28.9 mmol/L (21-32); CHLORIDE SERUM 108 mmol/L (98-107); CREATININE SERUM 0.9 mg/dL (0.6-1.0); GLUCOSE SERUM 99 mg/dL (74-106); POTASSIUM SERUM 3.8 mmol/L (3.5-5.1); SODIUM SERUM 144 mmol/L (136-145)
--- NOTE | 2019-05-23 07:16 | NUR ---
ENDORSED CARE TO RN JOSÉ LUIS. NO ACUTE DISTRESS NOTED AT THIS TIME. PT CALM AND COOPERATIVE WITH NURSING CARE.
--- NOTE | 2019-05-23 07:48 | NUR ---
RECEIVED PATIENT FROM CARMELA MALDONADO. PATIENT SEEN SLEEPING IN BED AT THIS TIME. NO VISIBLE SIGNS OF PAIN OR DISCOMFORT. WILL AWAIT DR CARBAJAL AND TECHNOLOGY APPLICATIONS CONSULTANT TO ARRIVE AND SPEAK WITH PATIENT ABOUT PLAN TODAY. CALL LIGHT IN REACH AT THIS TIME.
--- NOTE | 2019-05-23 09:29 | NUR ---
SALES ADMINISTRATION MANAGER EDWARD IN TO SPEAK WITH PATIENT. STATES PATIENT IS CLEARED FOR DISCHARGE BUT PATIENT AND SALES ADMINISTRATION MANAGER AGREED TO STAY ONE EXTRA DAY. ALL QUESTIONS ADDRESSED AT THIS TIME. WILL ALSO AWAIT FOR DR CARBAJAL TO COME TO SPEAK W PATIENT.
[2019-05-23 09:49] VITALS: BP 172/82
--- NOTE | 2019-05-23 16:28 | NUR ---
SPOKE WITH PATIENT AND ABOUT PATIENT CONCERNS. STATES SHE WOULD LIKE TO GO HOME TODAY BUT WORRIED ABOUT HOME DIET AND REGIMENT. RECCOMMENDED PATIENT TO STAY UNTIL TOMORROW TO SPEAK WITH EQUITY RESEARCH ANALYST. NO PRESCRIPTIONS LEFT TODAY BY AUXILIARY POWERPLANT OPERATOR EDWARD AND INFORMED PATIENT. PATIENT AGREES BUT STILL HAS ANXIETY ABOUT DISCHARGE AND WORRIES ABOUT ABDOMINAL PAIN AND CRAMPING AT HOME. CALL LIGHT IN REACH AT THIS TIME, PRN TORADOL 40 MG IVP ADMINISTERED.
[2019-05-23 16:53] VITALS: BP 167/80
--- NOTE | 2019-05-23 18:30 | NUR ---
PATIENT IN BED AT THIS TIME. NO COMPLAINTS OF PAIN. PATIENT STATED THAT SOMEONE CAME IN TO SPEAK TO HER ABOUT NUTRITION AND HANDOUTS WERE GIVEN TO PATIENT. WHEN ASKED IF PERSON CAME FROM DIETARY, PATIENT WAS UNAWARE. WILL ENDORSE TO ONCOMING NURSE. CALL LIGHT IN REACH AT THIS TIME.
--- NOTE | 2019-05-23 19:17 | NUR ---
PT RECEIVED A/O X4, ABLE TO MAKE NEEDS KNOWN. MED-SURG, DENIES ANY CP/PRESSURE. PULSES PALPABLE, NO EDEMA PRESENT. BREATHING IS EVEN AND UNLABORED ON RA, NO RESP DISTRESS NOTED. ABD SOFT AND NONDISTENDED, DENIES N/V. PT TOLERATING FULL LIQUID DIET WELL. VOIDS FREELY, BRP. GENERALIZED WEAKNESS. SKIN IS WARM AND DRY, INTACT. PT DENIES HAVING ANY PAIN AT THIS TIME. IV TO RAC, PATENT NAD INTACT, SITE WNL. NO ACUTE DISTRESS NOTED. BED IN LOWEST SETTING, SIDE RAILS UP X2, CALL LIGHT WITHIN REACH. WILL CONT TO MONITOR.
[2019-05-23 20:49] VITALS: BP 151/63
--- NOTE | 2019-05-23 21:45 | NUR ---
PT C/O INSOMNIA AND REQUESTING SLEEP AID. DR MARIE MADE AWARE, ORDERS RECEIVED. ONE TIME ORDER OF AMBIEN PO GIVEN ORDERED. NO ACUTE DISTRESS NOTED. WILL CONT TO MONITOR.
--- NOTE | 2019-05-24 01:46 | NUR ---
PT RESTING IN BED WITH EYES CLOSED, BUT IS EASILY AROUSABLE. BREATHING IS EVEN AND UNLABORED, NO RESP DISTRESS NOTED. NO S/S OF PAIN OBSERVED. IV INTACT. NO ACUTE DISTRESS NOTED. CALL LIGHT WITHIN REACH. WILL CONT TO MONITOR.
[2019-05-24 05:35] VITALS: BP 174/71
[2019-05-24 06:55] LABS: BASOPHIL % 0.4 % (0-2); PLATELET COUNT 233 x10^3mcL (130-400); RED CELL DISTRIBUTION WIDTH 13.7 % (11.5-14.5)
[2019-05-24 07:11] LABS: CALCIUM 8.8 mg/dL (8.5-10.1); CARBON DIOXIDE 29.3 mmol/L (21-32); CHLORIDE SERUM 107 mmol/L (98-107); CREATININE SERUM 0.8 mg/dL (0.6-1.0); GLUCOSE SERUM 101 mg/dL (74-106); POTASSIUM SERUM 3.9 mmol/L (3.5-5.1); SODIUM SERUM 143 mmol/L (136-145)
--- NOTE | 2019-05-24 07:13 | NUR ---
RECEIVED REPORT FROM ERICA CASEY. PATIENT RESTING IN BED C/O NAUSEA. ALL OTHER NEEDS MET. ALL QUESTIONS AND CONCERNS ADDRESSSED. ALL CARES ENDORSED.
--- NOTE | 2019-05-24 07:32 | NUR ---
PT SLEPT WELL THROUGHOUT THE EVENING. BREATHING IS EVEN AND UNLABORED, NO RESP DISTRESS NOTED. NO ACUTE CHANGES ENCOUNTERED DURING SHIFT. ALL NEEDS MET AND ANTICIPATED. CALL LIGHT WITHIN REACH. CONT OF CARE ENDORSED TO AM NURSE.
[2019-05-24] MEDS ORDERED: FLA500 PO (08:50)
[2019-05-24] MEDS ORDERED: ZOF4 PO (08:54)
[2019-05-24] MEDS ORDERED: DICYCLOMINE HCL10 MG PO (08:54)
[2019-05-24 09:04] VITALS: BP 169/73
[2019-05-24 10:56] VITALS: BP 169/73
--- NOTE | 2019-05-24 11:15 | NUR ---
PATIENT STABLE FOR DISCHARGE PER MD. DISCHARGE INSTRUCTIONS AND SUMMARY DISCUSSED WITH PATIENT AND . UNDERSTANDING WAS VERBALIZED AND ALL QUESTIONS AND CONCERNS WERE ADDRESSED. IV WAS REMOVED AND IV POLE CLEARED. ID BANDS CUT. PT ESCORTED TO LOBBY VIA WHEELCHAIR.
== END 2019-05-24 11:22 | disposition home or self-care (01) | DRG 438 ==
LOC: ED 13:00 → MU 14:54
PROVIDERS: Emergency Medicine; ADMIT Internal Medicine
DX: K85.90 Acute pancreatitis without necrosis or infection, unspecified (principal); N17.0 Acute kidney failure with tubular necrosis; K57.92 Diverticulitis of intestine, part unspecified, without perforation or abscess without bleeding; E78.5 Hyperlipidemia, unspecified; I10 Essential (primary) hypertension; I48.91 Unspecified atrial fibrillation; F32.9 Major depressive disorder, single episode, unspecified; Z79.01 Long term (current) use of anticoagulants; Z68.25 Body mass index [BMI] 25.0-25.9, adult
CPT/HCPCS: G0378; J1885; J2270; J2405; J3490; J7030; Q9967

== ENCOUNTER 2020-07-28 12:50 | Inpatient (IN) | payer OTHER, MEDICARE, SELFPAY ==
[~2020-07-28] VITALS: Ht 172.7 cm; Wt 69.0 kg
[~2020-07-28 12:50] MED LIST changes: +CILOSTAZOL50 M1 PO; +DICYCLOMINE HCL10 MG PO; +FLA500 PO; +FLUOXETINE40 MG PO; +ZOF4 PO; +ZOLOFT25 MG PO
--- NOTE | 2020-07-28 14:15 | NUR ---
TO HALLWAY 2 AFTER BED DELAY.
--- NOTE | 2020-07-28 14:56 | NUR ---
EKG AT BEDSIDE
--- NOTE | 2020-07-28 15:26 | NUR ---
X RAY AT BEDSIDE
--- NOTE | 2020-07-28 15:30 | NUR ---
PT MANIA FROM HOME C/O WOUND INFECTION. PT STATES SHE WAS TOLD BY SON TO GO TO HOSPITAL TO GET WOUND CHECK. PT DENIES ANY OTHER SYMPTOMS. DENIES N/V, DENIES, CHEST PAIN, DENIES FEVER, COUGH.PT STATES SHE DOES HAVE HX OF HAVING LOOSE STOOLS OCCASIONALLY. PT AAOX4, NO SOB, NO DISTRESS, ABLE TO VERBALIZE HER NEEDS. PT PLACED IN CARDICA MONITOR. WILL CONTINUE TO MONITOR PATIENT. CALL LIGHT WITHIN REACH.
[2020-07-28 16:14] LABS: BASOPHIL % 0.5 % (0.2-1.3); PLATELET COUNT 217 x10^3mcL (179-408)
--- NOTE | 2020-07-28 16:14 | NUR ---
AUDIO PRODUCTION ENGINEER MISTAKENLY PUT THAT CULTURES WERE DONE @ 1645 & 1650 SHE VERBALLY TOLD ME THEY WERE DONE @ 1545 & 1550, CHARTING MISTAKE TREATMENT CHARTED PER HER VERBAL TIMES
[2020-07-28 16:22] LABS: RED CELL DISTRIBUTION WIDTH 16.3 % (12.3-17.7)
[2020-07-28 16:32] LABS: CALCIUM 8.6 mg/dL (8.5-10.1); CARBON DIOXIDE 28.7 mmol/L (21-32); CHLORIDE SERUM 104 mmol/L (98-107); CREATININE SERUM 1.1 mg/dL (0.6-1.0); GLUCOSE SERUM 92 mg/dL (74-106); POTASSIUM SERUM 3.7 mmol/L (3.5-5.1); SODIUM SERUM 142 mmol/L (136-145)
[2020-07-28 16:38] LABS: ALKALINE PHOSPHATASE 99 U/L (46-116); ALT/SGPT 16 U/L (14-59); AST/SGOT 12 U/L (15-37); BILIRUBIN TOTAL 0.76 mg/dL (0.20-1.00)
[2020-07-28 16:59] LABS: ALBUMIN 2.4 g/dL (3.4-5.0); TOTAL PROTEIN, SERUM 5.9 g/dL (6.4-8.2)
--- NOTE | 2020-07-28 19:22 | NUR ---
REPORT GIVEN TO AYAKA CASEY
--- NOTE | 2020-07-28 19:26 | NUR ---
REPORT FROM ENRIQUE CASEY
[2020-07-28 20:49] LABS: microscopic required? YES; urine erythrocyte 3+ (NEGATIVE)
[2020-07-28 21:39] LABS: CHOLESTEROL/HDL RATIO 2.8
[2020-07-28 23:15] LABS: FREE T4 1.82 ng/dL (0.76-1.46); FREE THYROXINE INDEX 4.8 ug/dL (1.4-4.5); T4(THYROXINE) 10.3 ug/dL (4.7-13.3)
--- NOTE | 2020-07-29 00:18 | NUR ---
PATIENT DAUGHTER CALLED- KEZIA [phone]. PATIENT CAME FROM [facility] [place]. STATED IN JUN 13 A STENT WAS PLACED IN THE PATIENTS RIGHT LEG ON JUN 19. THEY PLACED A SECOND SENT ON THE TO BY PASS THE OTHER SENT. THE WOUND VAC IS ON FROM THE SECOND BYPASS. THE MAIN LARGE WOUND ON THE LEFT UPPER THIGH WAS THE RESULT OF REMOVING A VEIN FOR THE BYPASS AND IS NOW OPEN.
--- NOTE | 2020-07-29 01:05 | NUR ---
PT LAYING IN THE RIGHT LATERAL POSITION IN A POSITION OF COMFORT. PT AAO X4 RESPIRATIONS E/U NO DISTRESS NOTED.
[2020-07-29 01:30] LABS: T3 TOTAL 0.82 ng/mL
--- NOTE | 2020-07-29 07:10 | NUR ---
RECEIVED PT FROM NIGHT NURSE. PT CURRENTLY IN BED S/F, 2 INCISIONS NOTED TO BILATERAL LEGS. PT HAS A WOUND VAC TO R. LEG BUT CURRENTLY NOT DRAINING D/T BATTERY ON WOUND VAC. PT IS A0X3, SEEMED CONFUSED ON WHERE SHE WAS OR [place] [facility] [place]/U, SIDERAILS X2, FCM, PT DENIES ANY PAIN AND APPEARS TO BE IN NO ACUTE DISTRESS AT THIS TIME. WILL CONTINUE TO MONITOR.
[2020-07-29 07:13] LABS: BASOPHIL % 0.6 % (0.2-1.3); PLATELET COUNT 219 x10^3mcL (179-408)
[2020-07-29 07:39] LABS: CALCIUM 8.7 mg/dL (8.5-10.1); CARBON DIOXIDE 25.6 mmol/L (21-32); CHLORIDE SERUM 106 mmol/L (98-107); CREATININE SERUM 0.9 mg/dL (0.6-1.0); GLUCOSE SERUM 88 mg/dL (74-106); POTASSIUM SERUM 4.1 mmol/L (3.5-5.1); SODIUM SERUM 144 mmol/L (136-145)
[2020-07-29 07:47] LABS: RED CELL DISTRIBUTION WIDTH 16.5 % (12.3-17.7)
--- NOTE | 2020-07-29 11:21 | NUR ---
CALLED AND SPOKE WITH DAUGHTER ARNOLD TO BRING PLUG FOR WOUND VAC, DAUGHTER STATES WILL CALL TO BRING PLUG AND SUPPLIES
--- NOTE | 2020-07-29 12:20 | NUR ---
ASSISTED PT TO BSC. CHANGED PT SHEETS AND ASSISTED PT IN HYGEINE. IV NOT FLUSHING, REMOVED IV, WILL START NEW IV. PT SEEMS TO BE CONFUSED AND DOES NOT SEEM TO KNOW WHERE SHE IS. PT TALKING ABOUT THE APPOINTMENT SHE NEEDS TO MAKE, WHAT WE ARE SELLING AND THAT SHE NEEDS TO GET HER HAIR DONE. INFORMED PT SHE IS IN THE ED AT [facility] [place]. PT ABLE TO STATES NAME, AND DAY. CALL LIGHT WITHIN REACH, SIDE RAILS UP X2. WILL CONTINUE TO MONITOR.
--- NOTE | 2020-07-29 12:42 | NUR ---
INFORMED RESIDENT OF PT REQUEST FOR ORAL FLUIDS AND THAT PT SEEMS TO BE CONFUSED AT THIS TIME.
--- NOTE | 2020-07-29 12:49 | NUR ---
BROUGHT WOUND VAC SUPPLIES. PLUGGED IN WOUND VAC AND CURRENTLY WORKING AT THIS TIME WITH SEROSANGENOUS FLUID DRAINING.
--- NOTE | 2020-07-29 13:25 | NUR ---
PROVIDED PT W/ LUNCH TRAY. ASSISTED W/ TRAY SETUP. PT EATING AT THIS TIME. NO ASSITANCE NEEDED. CALL LIGHT WITHIN REACH.
--- NOTE | 2020-07-29 14:11 | NUR ---
ASSISTED PT W/ BSC. PT HAD SMALL LOOSE BM, W/ SMALL AMOUNT OF BRIGHT RED BLOOD WHEN WIPING. PT NOW BACK IN BED AND MADE COMFORTABLE. INFORMED RESIDENT OF BLOOD IN BM.
[2020-07-29 15:10] LABS: BASOPHIL % 0.8 % (0.2-1.3); PLATELET COUNT 190 x10^3mcL (179-408)
[2020-07-29 15:17] LABS: RED CELL DISTRIBUTION WIDTH 16.1 % (12.3-17.7)
--- NOTE | 2020-07-29 16:07 | NUR ---
PAGED DR MCGEE ABOUT LOW BP. DR. MCGEE RECOMMENDS 500ML BOLUS. PER DR. MCGEE IF BP DOES NOT IMPROVE AFTER BOLUS, WILL ORDER MIDODRINE. WILL CARRY OUT ORDERED.
--- NOTE | 2020-07-29 16:30 | NUR ---
WOUND VAC MACHINE ALERTING "LEAK". WOUND DRESSING SITE NOT INTACT, REMOVED OLD DRESSING AND APPLIED NEW DRESSING W/ SUPPLIES PROVIDED BY FAMILY. WOUND VAC NOW WORKING PROPERLY.
--- NOTE | 2020-07-29 16:48 | NUR ---
PT CONTINUES TO BE CONFUSED, PT ABLE TO STATE NAME,, AND TODAYS DATE. PT MUMBLING TO SELF WHEN ASKED QUESTIONS. PT HAVING DIFFICULTY W/ SHORT TERM MEMORY, CANT RECALL WHERE SHES AT.
--- NOTE | 2020-07-29 19:25 | NUR ---
PT REPORT GIVEN TO EDA CASEY FOR CONTINUATION OF CARE.
--- NOTE | 2020-07-29 19:30 | NUR ---
PT NOTED SITTING UP ON SIDE OF ER GURNEY. PT REPORTS "I JUST REALLY NEED TO TAKE A SHOWER IT WONT TAKE TOO LONG". PT REORIENTED AND MOVED BACK INTO BED. WHEN ASKED IF PT KNEW WHERE SHE WAS PT RESPONDED "THAT HOSPITAL IN [place] I THINK". PT ABLE TO RECALL NAME AND BIRTHDAY AT THIS TIME. FLUIDS INFUSING PER EMAR ORDERS. SIDE RAILS UP X 2, ER GURNEY IN LOWEST, LOCKED POSITION. PT IN FULL VIEW OF NURSES STATION. WILL CONTINUE TO [facility]
--- NOTE | 2020-07-29 20:45 | NUR ---
UPON ENTERING ROOM PT NOTED TO BE SITTING UP IN BED. PT STATES "I WAS JUST CLEANING UP A LITTLE". PT REORIENTED AT THIS TIME AND MOVED BACK INTO BED. PT NOTED TO HAVE REMOVED WOUND DRESSING TO INNNER LEFT THIGH. PT RESTATES "I WAS TRYING TO CLEAN UP". PT MEDICATED PER EMAR ORDERS.
--- NOTE | 2020-07-29 22:16 | NUR ---
REPORT CALLED TO CARMELA PARRA. HE WILL ASSUME FURTHER CARE OF THIS PT
--- NOTE | 2020-07-29 22:34 | NUR ---
RECEIVED PT FROM ED VIA GUERNEY, CAME IN DUE TO WEAKNESS AND DIARRHEA. ORIENTED TO PERSON ONLY, CONFUSED, ABLE TO FOLLOW COMMANDS, SPEECH IS CLEAR. NOTED PT HAS VISUAL HALLUCINATIONS. NO SOB NOTED, LUNG SOUNDS DIMINISHED ON AUSCULTATION, O2 SAT=99%, RA. DENIES CHEST PAIN/PRESSURE, SR W/ BBB. DENIES ABDOMINAL DISCOMFORT. NOTED PT HAS A DIARRHEAL EPISODE. W/ PORTILLO CATHETER DRAINING W/ LEANDRA COLORED URINE. W/ WOUND VAC ON THE RLE ON 125 MMG HG (PT'S OWN WOUND VAC). W/ 2 OPEN WOUNDS ON THE LLE, HAS MILD FOUL ODOR AND MILD DRAINAGE, COVERED W/ DRY DRESSING. 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 RLE EDEMA. PULSES ARE PALPABLE. IV SITE PATENT AND INTACT. SIDE RAILS UPX2. CALL LIGHT ON REACH. PRIMARY NURSE AIDA AT BEDSIDE FOR CONTINUITY OF CARE
[2020-07-29 23:32] VITALS: BP 166/73
--- NOTE | 2020-07-30 05:21 | NUR ---
PT REPEATEDLY TRYING TO GET OUT OF BED, PULLING ON IV LINES, REMOVING DRESSING, DESPITE REORIENTATION, DECREASED STIMULI, DISTRACTIONS. ALL INTERVENTIONS INEFFECTIVE. REQUESTING ORDER FOR RESTRAINTS FOR SAFETY. RECEIVED ORDER FROM DR. SALGUERO FOR SOFT WRIST RESTRAINTS. PT STILL PERSISTENTLY TRYING TO GET OUT OF BED, REMOVED IV AND DRESSING TO LEFT LEG. LEFT LEG WOUNDS TEMPORARILY COVERED. WILL MONITOR CLOSELY.
[2020-07-30 05:38] VITALS: BP 146/65
--- NOTE | 2020-07-30 07:57 | NUR ---
0720: REPORT TAKEN FROM [facility] [facility] ENGINEER NURSE, PATIENT FOUND TO BE ALERT AND ORIENTED X 1, VERY CONFUSED, ONE WRIST RESTRAINT ONE LEFT WRIST, NONE ON RIGHT WRIST, ATTEMPTING TO PULL OUT PORTILLO, AND REMOVED DRESSING FROM LEFT LEG WOUNDS. GROIN WOUND OPEN AND DEEP TISSUE IS VISUALIZED, SECOND LEFT WOUND JUST ABOVE THE LEFT KNEE TO THE INSIDE OF THE LEG ALSO DEEP. LOWER RIGHT LEG WOUND WITH WOUND VAC IN PLACE. PATIENT PUT BACK INTO RESTRAINTS, ATTEMPTED TO RE-ORIENT WITH NO EFFECT. NO IV IN PLACE AT THIS TIME, WILL CONTINUE TO MONITOR.
[2020-07-30 08:31] LABS: BASOPHIL % 0.8 % (0.2-1.3); PLATELET COUNT 225 x10^3mcL (179-408)
[2020-07-30 08:51] VITALS: BP 138/72
[2020-07-30 09:23] LABS: CALCIUM 8.6 mg/dL (8.5-10.1); CHLORIDE SERUM 105 mmol/L (98-107); CREATININE SERUM 0.9 mg/dL (0.6-1.0); GLUCOSE SERUM 92 mg/dL (74-106); SODIUM SERUM 143 mmol/L (136-145)
[2020-07-30 11:15] LABS: RED CELL DISTRIBUTION WIDTH 16.3 % (12.3-17.7)
[2020-07-30 11:52] LABS: POTASSIUM SERUM 2.7 mmol/L (3.5-5.1)
--- NOTE | 2020-07-30 12:37 | NUR ---
UNABLE TO PLACE IV AFTER MULTIPLE ATTEMPTS, WILL ASK FOR ASSISTANCE, ALSO ATTEMPTED TO DRESS LEFT LEG WOUNDS BUT PATIENT REMOVED DRESSING BY TWISTING HER LEGS, UNABLE TO PLACE ANOTHER AT THIS TIME.
[2020-07-30 13:47] VITALS: Ht 172.7 cm; Wt 69.0 kg
--- NOTE | 2020-07-30 16:06 | NUR ---
SPOKE TO PATIENT DAUGHTER VIA TELEPHONE. SHE REPORTS CONFUSION BEGAN EARLY JUNE S/P VASCULAR SURGERY. SHE IS REQUESTING A PSYC CONSULT IF POSSIBLE. THE DAUGHTER ALSO EXPRESSED CONCERN THAT SHE IS NOT ABLE TO CARE FOR HER MOTHER DUE TO THE PATIENT COMPLEX CARE.
[2020-07-30 17:06] VITALS: BP 146/80
--- NOTE | 2020-07-30 19:10 | NUR ---
RECEIVED PATIENT FROM DAY SHIFT NURSE. PATIENT IN NO ACUTE DISTRESS AT THIS TIME. SLEEPING AT THIS TIME. EU BREATHING NOTED ON ROOM AIR. TELE #[address], HR 109. WOUND VAC TO RLE. IV WNL, FLUIDS INFUSING WELL. PATIENT AT HIGH RISK FOR FALL, WHEN RESTRAINTS REMOVED PATIENT ATTMEPTS TO GET OUT OF BED AND REMOVE LINES. RESTRAINTS IN PLACE, SKIN UNDER RESTRAINTS WNL. SAFETY PROTOCOLS IN PLACE. BED IN LOWEST POSITION. CALL LIGHT WITHIN REACH. SIDE RAILS UP X2.
--- NOTE | 2020-07-30 19:16 | NUR ---
REPORT GIVEN TO RECTIFICATION PRINTER NURSE CARE ENDORED
[2020-07-30 20:12] VITALS: BP 126/96
--- NOTE | 2020-07-31 00:15 | NUR ---
PATIENT RESTING AT THIS TIME. RESTRAINTS IN PLACE, WNL. SAFETY PROTOCLS IN PLACE. RESTRAINTS REMOVED, PATIENT CONTINUES TO ATTEMPT TO PULL OUT PORTILLO AND PICKING AT HER WOUNDS. RESTRAINTS PLACED ON PATIENT. CALL LIGHT WITHIN REACH. SIDE RAILS UP X2. REPOSITIONED.
--- NOTE | 2020-07-31 06:32 | NUR ---
ALL NEEDS/CONCERNS ATTENDED TO AT THIS TIME. NO ACUTE DISTRESS.
--- NOTE | 2020-07-31 07:45 | NUR ---
RECEIVED PT FROM NIGHT NURSE. PT CONFUSED, ONLY ORIENTED TO SELF. VERBAL AT TIMES, USUALLY GARBLED. SOFT WRIST RESTAINTS APPLIED BILAT. PT STABLE WITH NO ACUTE DISTRESS. NS RUNNING AT 60 ML/HR. WILL CONTINUE TO MONITOR.
[2020-07-31 09:22] VITALS: BP 131/77
[2020-07-31 12:50] VITALS: BP 152/88
[2020-07-31 15:32] LABS: PLATELET COUNT 233 x10^3mcL (179-408)
[2020-07-31 15:36] LABS: RED CELL DISTRIBUTION WIDTH 15.8 % (12.3-17.7)
[2020-07-31 15:50] LABS: ALBUMIN 2.4 g/dL (3.4-5.0); ALKALINE PHOSPHATASE 91 U/L (46-116); ALT/SGPT 14 U/L (14-59); AST/SGOT 25 U/L (15-37); BILIRUBIN TOTAL 0.7 mg/dL (0.20-1.00); CALCIUM 8.2 mg/dL (8.5-10.1); CARBON DIOXIDE 26.9 mmol/L (21-32); CHLORIDE SERUM 105 mmol/L (98-107); CREATININE SERUM 0.9 mg/dL (0.6-1.0); GLUCOSE SERUM 91 mg/dL (74-106); POTASSIUM SERUM 3.7 mmol/L (3.5-5.1); SODIUM SERUM 142 mmol/L (136-145); TOTAL PROTEIN, SERUM 6.1 g/dL (6.4-8.2)
--- NOTE | 2020-07-31 19:30 | NUR ---
PT AWAITING WOUND CONSULT. WOUNDS DRESSED WITH WET TO DRY DRESSING AND WRAPPED, CDI. PORTILLO CATHETER IN PLACE. PT BECAME AGITATED AND BEGAN TO PULL AT TUBES AND LINES, AND TRIED TO HIT AND KICK. WRIST RESTRAINST STILL IN PLACE. CARE ENDORSED TO BASIN CLEANER NURSE.
[2020-07-31 21:47] VITALS: BP 115/55
--- NOTE | 2020-07-31 22:00 | NUR ---
PATIENT IS CONFUSED, PICKING ON LEFT THIGH DRESSING. REORIENTED PATIENT. NEW WET TO DRY DRESSING APPLIED TO LEFT THIGH. PATIENT IS ON BILATERAL WRIST RESTRAINTS. BED ALARM ON.
[2020-08-01 06:21] VITALS: BP 159/72
--- NOTE | 2020-08-01 07:30 | NUR ---
PT. RECEIVED IN BED ALERT AND CONFUSED.CARE ASSURED.NO ACUTE DISTRESS NOTED.PT ON ROOM AIR, SATTING 97%, LUNGS ARE DIMINISHED.NSR ON THE MONITOR.ACTIVE BOWELS.WOUNDS ON LEFT AND REIGHT LEG WITH DRESSING.WOUND NURSE EVAL AND TX ORDER PENDING.PORTILLO TO GRAVITY.VSS.AFEBRILE.PT ON BILAT SOFT WRIST RESTRAINTS FOR SAFETY.COVID CONTACT/DROPLET PRECAUTION IN EFFECT.
[2020-08-01 08:05] LABS: BASOPHIL % 0.7 % (0.2-1.3); PLATELET COUNT 217 x10^3mcL (179-408)
[2020-08-01 08:22] LABS: CALCIUM 7.9 mg/dL (8.5-10.1); CARBON DIOXIDE 23.5 mmol/L (21-32); CHLORIDE SERUM 104 mmol/L (98-107); CREATININE SERUM 0.8 mg/dL (0.6-1.0); GLUCOSE SERUM 89 mg/dL (74-106); POTASSIUM SERUM 3.2 mmol/L (3.5-5.1); SODIUM SERUM 143 mmol/L (136-145)
[2020-08-01 08:41] VITALS: BP 121/67
[2020-08-01 08:44] LABS: MAGNESIUM 0.7 mg/dL (1.8-2.4); RED CELL DISTRIBUTION WIDTH 16.1 % (12.3-17.7)
--- NOTE | 2020-08-01 10:00 | NUR ---
WOUND CARE EVALUATION NOTE: WOUND ASSESSMENT DONE WITH THIS 79 Y/O WITH HX OF PAD AND MULTIPLE SURGICAL WOUNDS. PER DIGITAL INTERN CHARGE NURSE, WOUND VAC WAS REMOVED, WET TO DRY DRESSING APPLY. PT. IS AWAKE BUT CONFUSE, TALKING TO HERSELF, DO NOT FOLLOW DIRECTIONS. POC DISCUSSED WITH LEAH LEON, WILL REQUEST SURGEON CONSULT. -RIGHT LOWER LEG MEDIAL ASPECT TWO SURGICAL WOUND SITES: SITE #1 0.5X0.5X2CM WOUND BED YELLOW, LARGE AMOUNT PURULENT DRAINAGE, MILD ODOR, KATE WOUND ERYTHEMA, SKIN INTACT. SITE #2 5X3X1.5CM WOUND BED BROWN AND BLACK, LARGE AMOUNT PURULENT DRAINAGE, MILD ODOR, KATE WOUND ERYTHEMA, SKIN INTACT. -LEFT GROIN EXTENDED TO MEDIAL THIGH [id number] WOUND BED BROWN AND BLACK, LARGE AMOUNT PURULENT DRAINAGE, FOUL ODOR, KATE WOUND SKIN MAD RED AND MOIST -LEFT MEDIAL LEG SURGICAL WOUND [id number] WOUND BED BROWN AND BLACK, LARGE AMOUNT PURULENT DRAINAGE, FOUL ODOR, KATE WOUND SKIN ERYTHEMA WITH OLD HEALED SURGICAL SCARS -MAD TO INNER THIGHS AND PERINEUM RED AND MOIST RECOMMENDATIONS: -NO WOUND VAC AT THIS TIME UNTIL WOUND INFECTION TREATED. -WOUND CULTURE TO ALL WOUNDS -X RAY TO RLE TO RULE OUT OSTEOMYELITIS -SURGEON CONSULT FOR DEBRIDEMENT INFECTED WOUNDS -CLEANSE SURGICAL WOUNDS TO RLE, LEFT GROIN AND LEFT MEDIAL LOWER LEG WITH NS, PACK WITH ADAPTIC DRESSING AND COVER WITH DRY DRESSING QD AND PRN IF SOILING -PROVIDE GOOD KATE CARE AND APPLY THIN LAYERS OF Z GUARD BID AND PRN IF SOILING. -TURN AND REPOSITION PATIENT Q 2H -ASSESS AND MONITOR SKIN CONDITION DURING POSITION CHANGE -OFFLOAD BILATERAL HEELS BY PLACING PILLOWS UNDER CALVES AT ALL TIMES, UNLESS OTHERWISE CONTRAINDICATED -PRESSURE REDISTRIBUTION BY PLACING PILLOWS AND OFFLOADING SACRALCOCCYX -KEEP SKIN CLEAN AND DRY AT ALL TIMES. PLEASE CONTACT WOUND CARE NURSE FOR ANY CHANGE OF WOUND CONDITION
[2020-08-01 12:20] VITALS: BP 162/72
--- NOTE | 2020-08-01 16:00 | NUR ---
Initial Nutrition Assessment: 252B TA MALAGON 79F HR Consult: nutrition evaluation Dx: diarrhea, weakness, dehydration, generalized weakness PMHx: Cardiac, HTN, Reflux, Hyperlipidemia, Carotid stenosis, Afib, bursitis of shoulder, spasmotic Colon, diverticulitis PSHx: Colectomy, surgery for PAD Labs: (08/01) H/H 10.2/30L, K 3.2L, Ca 7.9L, Mg 0.7L, (07/31) albumin 2.4L *Lipid panel WNL Meds: Lipitor, Protonix, Neurontin, Prozac, Pletal, Norvasc, sodium, Betapace, Hosford Diet: Regular PO intake since admission: (07/30) B: 60% Ht: 172.72cm/68in Wt: 68.974kg/151.7lbs BMI: 23.1 Bed scale: not assessible IBW: 63.64kg/140lbs %IBW: 108.4% UBW: not assessible Age: 79 Food Allergies: not assessible Edema: right leg and pedal edema Last BM: 07/31 per RN Skin: open wounds on left thigh and right leg to wound vac. Per career information specialist note (08/01), two surgical wound sites to right lower leg medial aspect, Left groin extended to medial thigh 07/26/5cm wound, surgical wound to left medial leg, and MAD to inner thigh. Scottie: 18 Per H and P (07/28), This is a 79 years old female with PMH of PAD undergone surgery and IBS came from home for having generalized weakness with several episodes of nonbloody diarrhea today. Patient just recently got [facility] a [facility] for [facility] duration due to a complication of her left lower extremity stent placement. Per her , patient developing a hematoma that her surgeon decided to let the wound open for drainage. He is unable to take care of the patient at home. The patient is concerned that because of her diarrhea that some of the feces was able to get into the open wound in her left groin area. Pt was admitted with dx: open wound right leg, vasomotor nephropathy 2/2 dehydration, h/o afib, h/o HTN, severe malnutrition h/o anxiety/depression, DVT RD Note (08/01/2020) Pt is COVID positive but asymptomatic per progress note (07/31). Per pt's RN, pt was confused and only oriented to self. Per pt's RN, pt did not have any GI issues, and her PO intake for breakfast was 30%. RN suspected that there could be an ulcer inside pt's mouth, and pt will spit her food on RN when RN tried to feed her. RN stated that pt could be benefited from a texture modified diet. Problem with: N/V/D/C: none per RN Problems with: Chewing: Swallowing: possible chewing difficulty per RN Current appetite: not assessible Recent wt change: not assessible %wt change: not assessible Height: not assessible Vitamin/Supplement use: Multivitamin per H and P Special diet at home: not assessible Physical activity: not assessible Nutrition education given (specify specific nutrition education and handout given): not given at this time d/t pt in isolation and only oriented to self Food-drug interactions? Education given? Coumadin and vitamin K, but pt in isolation and only oriented to self. Estimated Nutritional Needs Based on current body weight (69kg) Energy: 2257-4524 kcal/day (30-35 kcal/kg for wound healing) Protein: 82-103 g/day (1.2-1.5 g/kg for wound healing) Fluid: 5600-9990 mL/day (1 mL/kcal) Nutrition Diagnosis: 1. Inadequate energy and protein intake r/t poor PO intake a/e/b pt PO intake of 60% noted on 07/30, and RN reported 30% of intake on 08/01. 2. Increased energy and protein needs r/t skin integrity a/e/b pt has multiple wounds. Intervention 1. Recommend mechanical soft diet 2. Recommend Ld BID for wound healing 3. Recommend Ensure BID for poor PO intake. It will provide additional 700kcal and 40g protein. Recommendation provided to NP. Garcia. Waiting for response. Monitor/Evaluate Goal: PO intake at least 75% of estimated needs Monitor: PO intake, Labs, GI function, skin integrity. F/U in 2-3 days as high risk 08/03-18
[2020-08-01 16:21] VITALS: BP 170/57
[2020-08-01 20:22] VITALS: BP 181/79
--- NOTE | 2020-08-01 23:10 | NUR ---
DR IRENE ROUNDING AND MADE AWARE OF PATIENT'S FEVER OF 102.7, BLOOD CULTURE AND VANCO ORDERED. TYLENOL GIVEN FOR FEVER. PATIENT DENIES PAIN.
[2020-08-01 23:15] VITALS: BP 195/94
--- NOTE | 2020-08-02 00:30 | NUR ---
NOTIFIED DR. MIR OF PATIENT HIGH BLOOD PRESSURE, WILL PLACE PRN BP MEDS.
[2020-08-02 01:04] VITALS: BP 116/43
[2020-08-02 05:29] VITALS: BP 161/77
--- NOTE | 2020-08-02 06:51 | NUR ---
KEPT PT NPO FOR WOUND DEBRIDEMENT TODAY AT 0900.
--- NOTE | 2020-08-02 08:49 | NUR ---
PT LYING IN BED. BREATHING EVEN, UNLABORED. PT SLOW TO ANSWER QUESTIONS, A/OX4. NO ACUTE DISTRESS OR DISCOMFORT NOTED. WILL CONTINUE TO MONITOR. BED IN LOWEST POSITION, RAILS UP, CALL LIGHT WITHINN REACH
[2020-08-02 09:10] VITALS: BP 169/78
[2020-08-02 09:55] LABS: BASOPHIL % 0.4 % (0.2-1.3); PLATELET COUNT 206 x10^3mcL (179-408)
[2020-08-02 10:02] LABS: CALCIUM 7.8 mg/dL (8.5-10.1); CARBON DIOXIDE 28.8 mmol/L (21-32); CHLORIDE SERUM 108 mmol/L (98-107); CREATININE SERUM 0.9 mg/dL (0.6-1.0); GLUCOSE SERUM 110 mg/dL (74-106); POTASSIUM SERUM 3.7 mmol/L (3.5-5.1); SODIUM SERUM 144 mmol/L (136-145)
[2020-08-02 11:40] LABS: RED CELL DISTRIBUTION WIDTH 15.8 % (12.3-17.7)
[2020-08-02 13:11] VITALS: BP 167/65
--- NOTE | 2020-08-02 14:49 | NUR ---
PT LYING IN BED. ALOC W MOMENTS OF CLARITY NOTED. WOUND CARE COMPLETE: L INNER THIGH WOUND- REMOVED 1 MILA WRAP, 2 ABD, 2 4X4 PACKED INTO WOUND; PACKED 4 XEROFORM INTO WOUND AND PLACED ISLAND DRESSING OVER. L CALF WOUND- REMOVED 1 ISLAND DRESSING, 1 4X4. PACKED 1 XEROFORM AND PLACED ISLAND DRESSING OVER. BREATHING EVEN, UNLABORED. NO ACUTE DISTRESS OR DISCOMFORT NOTED. WILL CONTINUE TO MONITOR. BED IN LOWEST POSITION, RAILS UP, CALL LIGHT WITHIN REACH
--- NOTE | 2020-08-02 15:27 | NUR ---
CALLED OR REGARDING SCHEDULED TIME FOR PT'S DEBRIDEMENT. OR INFORMED DEBRIDEMENT SCHEDULED FOR 08/03/2020 @ 1100. WILL CONTINUE TO MONITOR. BED IN LOWEST POSITION, RAILS UP, CALL LIGHT WITHIN REACH
--- NOTE | 2020-08-02 16:41 | NUR ---
CONTACTED PT'S DAUGHTER, ARNOLD. UPDATED ARNOLD ON DEBRIDEMENT PROCEDURE STATUS- PROCEDURE MOVED TO 08/02/2020 @1100. ARNOLD VERBALIZED UNDERSTANDING AND CONSENTED TO THE PROCEDURE. PT BREATHING EVEN, UNLABORED. NO ACUTE DISTRESS/DISCOMFORTED NOTED. BED IN LOWEST POSITION, RAILS UP, CALL LIGHT WITHIN REACH
[2020-08-02 17:25] VITALS: BP 123/44
--- NOTE | 2020-08-02 18:35 | NUR ---
PT LYING IN BED. ALOC, BREATHING EVEN UNLABORED DENIES WOB. NO ACUTE DISTRESS/DISCOMFORT NOTED. PT HAS NO FURTHER QUESTIONS/CONCERNS. WILL ENDORSE TO PM NURSE. BED IN LOWEST POSITION, CALL LIGHT WITHIN REACH, RAILS UP
[2020-08-02 20:59] VITALS: BP 121/51
--- NOTE | 2020-08-02 23:29 | NUR ---
PATIENT IS CONFUSED BUT PLEASANT, FOLLOW SOME COMMANDS, MORE COOPERATIVE, VITAL SIGNS ARE STABLE. DRESSINGS ON RLE AND LEFT THIGH REINFORCED, WITH FOUL ODOR PURULENT DRAINAGE. PERICARE DONE, REPOSITIONED PATIENT.
--- NOTE | 2020-08-02 23:32 | NUR ---
PER DR. ZALDIVAR, DEBRIDEMENT OF LEFT THIGH WOUND WILL BE ON FRIDAY, NO TIME GIVEN YET.
[2020-08-03 05:43] VITALS: BP 147/58
[2020-08-03 07:53] LABS: BASOPHIL % 0.5 % (0.2-1.3); PLATELET COUNT 196 x10^3mcL (179-408)
[2020-08-03 08:03] LABS: RED CELL DISTRIBUTION WIDTH 16.2 % (12.3-17.7)
--- NOTE | 2020-08-03 08:15 | NUR ---
PT LYING IN BED. LOC WNL. BREATHING EVEN, UNLABORED. NO ACUTE DISTRESS/DISCOMFORT NOTED. WILL CONTINUE TO MONITOR. BED IN LOWEST POSITION,R AILS UP, CALL LIGHT WITHIN REACH
[2020-08-03 08:17] LABS: CALCIUM 7.4 mg/dL (8.5-10.1); CARBON DIOXIDE 25.6 mmol/L (21-32); CHLORIDE SERUM 104 mmol/L (98-107); CREATININE SERUM 1.3 mg/dL (0.6-1.0); GLUCOSE SERUM 94 mg/dL (74-106); POTASSIUM SERUM 3.1 mmol/L (3.5-5.1); SODIUM SERUM 140 mmol/L (136-145)
[2020-08-03 09:06] VITALS: BP 135/58
--- NOTE | 2020-08-03 12:49 | NUR ---
PT LYING IN BED. DR. ZALDIVAR PERFORMED DEBRIDEMENT. PACKED WOUND WITH 4X4 GAUZE, WET TO DRY. PT IN NO APPARENT DISTRESS/DISCOMFORT. WILL CONTINUE TO MONITOR. BED IN LOWEST POSITION, RAILS UP, CALL LIGHT WITHIN REACH
[2020-08-03 13:19] VITALS: BP 132/62
[2020-08-03 17:17] VITALS: BP 134/61
--- NOTE | 2020-08-03 19:37 | NUR ---
PT LYING IN BED COMFORTABLY. BREATHING EVEN, UNLABORED, RA. PT DENIES PAIN/DISCOMFORT. NO FURTHER QUESTIONS/COMMENTS AT THIS TIME. WILL ENDORSE TO PM NURSE. BED IN LOWEST POSITION, RAILS UP, CALL LIGHT WITHIN REACH
[2020-08-03 21:18] VITALS: BP 106/66
--- NOTE | 2020-08-04 00:48 | NUR ---
LATE ENTRY - 1930 PT LYING IN BED SUPINE WITH HOB ELEVATED 30 DEGRESS. PT IS AWAKE AND A/OX1 ONLY, BUT CALM AND COOPERATIVE. PT SPEECH IS SLOW AND GARBLED. TELE 49, SR HR 70, DENIES CHEST PAIN, DIZZINES, AND LIGHTHEADEDNES. PEDAL PULSES WEAK, PERIPHERAL PULSES STRONG. EDEMA TO RLE. RESPIRATIONS EVEN UNLABORED, CTA, RA, DENIES SOB. BS ACTIVE, ABD SOFT AND FLAT, NON-TENDER, LBM 08/03 - DIARRHEA. PORTILLO CATHETER PATENT DRAINING TO GRAVITY DARK YELLOW URINE. GENERALIZED WEAKNESS ABLE TO REPOSITION SELF. WOUND TO L INNER THIGH AND L/R CALVES, DRESSINGS C/D/I. DENIES PAIN. IV RFA 22G PATENT RUNNING NS@60ML/HR, NO COMPLICATIONS TO SITE. BED IN LOWEST POSITION, SIDE RAILS X 2, CALL LIGHT WITHIN REACH, BED ALARM ON.
--- NOTE | 2020-08-04 00:56 | NUR ---
LATE ENTRY 22:OO PT USED CALL LIGHT AND REPORTED BM. PT CONTINUES TO HAVE DIARRHEA. DIARRHEA NOTED TO SOIL WOUND TO L INNER THIGH. PT CLEANED AND FLEXI SEAL PLACED ORDERED, FLASH OF STOOL (DIARRHEA) NOTED IN TUBE. BALLOON FILLED WITH 45ML WHEN INDICATOR BALLOON INFLATED. PT TOLERATED WELL. WOUND TO L THIGH CLEANED, WTD DRESSING PLACED AND COVERED WITH ABD PAD. WOUND TO L CALVE C/D/I. WOUND TO R CALVE HEAVILY SOILED, WOUND CLEANED, WTD DRESSING PLACED AND COVERED WITH BORDERED DRESSING. BED LINEN AND GOWN CHANGED, PT LIFTED UP IN BED. ALL NEEDS MET, BED IN LOWEST POSITION, SIDE RAILS X 2, CALL LIGHT WITHIN REACH
--- NOTE | 2020-08-04 01:26 | NUR ---
PT SLEEPING IN SUPINE POSITION. NO RESPIRATORY DISTRESS NOTED. NON VERBAL PAIN INDICATORS ABSENT. TELE BATTERY CHANGED. IV RFA RUNNING NS@60ML/HR, PATENT, NO COMPLICATIONS TO SITE. BED IN LOWEST POSITION, SIDE RAILS X 2, CALL LGITH WITHIN REACH, BED ALARM ON.
[2020-08-04 06:28] VITALS: BP 153/66
--- NOTE | 2020-08-04 06:54 | NUR ---
PT IS AWAKE AND IS ONLY ORIENTED TO PERSON, PT WAS RESISTING CARE BUT AFTER REORIENTING HER AND ANSWERING HER QUESTIONS SHE COMPLIED TO VS, ANTIBIOTIC, AND CHANGING HER CHUX. NO RESPIRATORY DISTRESS NOTED, DENIES PAIN. PORTILLO PATENT DRAINING TO GRAVITY CLEAR DARK YELLOW URINE. URINE CULTURE SENT. RECTAL TUBE PATENT, DRAINING LOOS BROWN YELLOW STOOL. UNABLE TO COLLECT STOOL CX NOT ENOUGH STOOL TO DO SO. IV RFA PATENT RUNNING NS@60ML/HR, NO COMPICATIONS TO SITE. BED IN LOWEST POSITOIN, SIDE RAILS X 2, CALL LIGHT WTHIN REACH
[2020-08-04 08:40] VITALS: BP 115/73
--- NOTE | 2020-08-04 09:51 | NUR ---
CONFUSED, THROWING BOTTLE OF NS, PULLED OUT IV ACCESS, PULLED PORTILLO TUBING. BLOOD ALL OVER THE BED RAILING. CLEANED UP, PORTILLO TUBING RECONNECTED, WILL TRY TO PLACE IV ONCE CALM. KATE AREA CLEANED. BED EXIT ON.
[2020-08-04 12:07] VITALS: BP 160/77
--- NOTE | 2020-08-04 14:15 | NUR ---
Follow-up Nutrition Assessment: 252B TA MALAGON 79F HR Consult: nutrition evaluation Dx: diarrhea, weakness, dehydration, generalized weakness PMHx: Cardiac, HTN, Reflux, Hyperlipidemia, Carotid stenosis, Afib, bursitis of shoulder, spasmotic Colon, diverticulitis PSHx: Colectomy, surgery for PAD Labs: (08/03) H/H 9.9/29L, BUN 21H, Cr 1.3H, (08/01) H/H 10.2/30L, K 3.2L, Ca 7.9L, Mg 0.7L, (07/31) albumin 2.4L *Lipid panel WNL Meds: sodium, Zosyn, Protonix, Betapace, Vancocin, Lidocaine, Lipitor, Neurontin, Pletal, Zestril, Prozac, Norvasc, Hydralazine, Tylenol Diet: Cardiac CCHO Mechanical soft diet. Ld BID PO Intake: (08/01) B: 30%, L: 50%, (08/02) D: 60%, av.6% Wt: 68.974kg/151.7lbs BMI: 23.1 Edema: Edema noted to RLE Last BM: 08/03 Skin: open wounds on left thigh and right leg to wound vac. Per equipment application specialist note (08/01), two surgical wound sites to right lower leg medial aspect, Left groin extended to medial thigh 07/26/5cm wound, surgical wound to left medial leg, and MAD to inner thigh. Scottie: [address] (08/01/2020) Pt is COVID positive but asymptomatic per progress note (07/31). Per pt's RN, pt was confused and only oriented to self. Per pt's RN, pt did not have any GI issues, and her PO intake for breakfast was 30%. RN suspected that there could be an ulcer inside pt's mouth, and pt will spit her food on RN when RN tried to feed her. RN stated that pt could be benefited from a texture modified diet. Pt was admitted with dx: open wound right leg, vasomotor nephropathy 2/2 dehydration, h/o afib, h/o HTN, severe malnutrition h/o anxiety/depression, DVT RD Note (08/04/2020): Per operative report (08/03), debridement was performed by Dr. Bay Garcia. Good appetite noted in RN reassessment note (08/03). Per RN, pt was able to tolerate current diet with fair appetite and no chewing difficulty. Pt is currently on flexi-seal and draining stool today. Cardiac and CCHO diet restriction was added to diet order, RD will change ONS to ensure high protein to continue to aid PO intake. Estimated Nutritional Needs Based on current body weight (69kg) Energy: 0688-4265 kcal/day (30-35 kcal/kg for wound healing) Protein: 82-103 g/day (1.2-1.5 g/kg for wound healing) Fluid: 8615-0445 mL/day (1 mL/kcal) Nutrition Diagnosis: 1. Inadequate energy and protein intake r/t poor PO intake a/e/b pt average PO intake of 46.6% since last visit (modified, ongoing) 2. Increased energy and protein needs r/t skin integrity a/e/b pt has multiple wounds. (ongoing) Intervention 1. Continue Cardiac, CCHO, mechanical soft diet as tolerate 2. Continue Ld BID for wound healing 3. Continue Ensure high BID for poor PO intake. It will provide additional 320kcal and 32g protein. Monitor/Evaluate Goal: PO intake at least 75% of estimated needs Monitor: PO intake, Labs, GI function, skin integrity. F/U in 3-5 days as moderate risk 08/07-
--- NOTE | 2020-08-04 15:59 | NUR ---
PATIENT PULLED HER RECTAL TUBE AND INDWELLING PORTILLO, NO BLEEDING NOTED. WILL INSERT A NEW PORTILLO GIVEN PATIENT IS INCONTINENT OF URINE ANS PATIENT HAS A BIG WOUND ON LEFT GROIN .
[2020-08-04 16:18] VITALS: BP 106/61
--- NOTE | 2020-08-04 17:34 | NUR ---
NEW PORTILLO INSETED 16 FR. TOLERATED WELL, DRAINING YELLOW URINE. REINFGORCED WITH PATIENT NOT TO PULL OUT TO PROTECT LEFT GROIN WOUND.
--- NOTE | 2020-08-04 21:00 | NUR ---
Awake and verbally responsive. Confused and disoriented. No respiratory distress noted on room air. Denies pain. Denies n/v. BLE wounds wwith dressing intact. Sen catheter in placed with yellow urine. Incontinent of BM, good pericare rendered. Will cont.to monitor. CAll light within reach.
[2020-08-04 21:52] VITALS: BP 168/77
--- NOTE | 2020-08-05 04:45 | NUR ---
Afebrile. No significant change in condition noted. Continue on IV zosyn, vancomycin. Droplet /contact isolation, proper use of PPE and good hand hygiene observed.
[2020-08-05 05:21] VITALS: BP 165/66
[2020-08-05 07:31] LABS: BASOPHIL % 0.6 % (0.2-1.3); PLATELET COUNT 171 x10^3mcL (179-408)
[2020-08-05 07:56] LABS: CALCIUM 7.5 mg/dL (8.5-10.1); CARBON DIOXIDE 23.4 mmol/L (21-32); CHLORIDE SERUM 105 mmol/L (98-107); GLUCOSE SERUM 87 mg/dL (74-106); SODIUM SERUM 138 mmol/L (136-145)
[2020-08-05 08:08] LABS: RED CELL DISTRIBUTION WIDTH 15.8 % (12.3-17.7)
[2020-08-05 08:42] VITALS: BP 144/62
[2020-08-05 10:08] LABS: POTASSIUM SERUM 2.9 mmol/L (3.5-5.1)
[2020-08-05 12:16] VITALS: BP 122/60
[2020-08-05 17:22] VITALS: BP 124/55
--- NOTE | 2020-08-05 19:40 | NUR ---
PT IS AAOX4, AAOX1, DENIES HEADACHE/NAUSEA/DIZZINESS. PT IS MEDSURG PATIENT, DENIES CHEST PAIN. PULSES ARE EQUAL BILATERALLY, NO EDEMA NOTED. PULSES ARE EQUAL BILATERALLY, NO EDEMA NOTED, ON COUMADIN. PT IS CTA, ON RA, DENIES SOB. NO ACUTE DISTRESS OBSERVED. ABDOMEN IS SOFT AND ROUND, NO PAIN UPON PALPATION. NORMOACTIVE X4 QUADRANTS, LAST BM 08/04. PT HAS PORTILLO CATHETER IN PLACE, YELLOW URINE OBSERVED. PT DEMONSTRATES GENERALIZED WEAKNESS, BEDREST AT THIS TIME. OPEN WOUNDS TO INNER TIGHT AND BILATERAL CALVES, DRESSING IN PLACE, CDI. IV TO RFA 22G, NS AT 60ML/HR. PT IS CALM AND COOPERATIVE. ALL SAFETY MEASURES IN PLACE. BED IN LOWEST POSITION, CALL LIGHT WITHIN REACH. WILL CONTINUE TO MONITOR.
[2020-08-05 21:00] VITALS: BP 118/55
--- NOTE | 2020-08-06 01:40 | NUR ---
REQUESTED ORDER FOR POTASSIUM FROM DR. BOJORQUEZ. LABS POTASSIUM 2.9.
[2020-08-06 05:55] VITALS: BP 140/71
--- NOTE | 2020-08-06 06:38 | NUR ---
SECOND IV BAG OF POTASSIUM ORDER NOT GIVEN. COMMUNICATED WITH DR. BOJORQUEZ NO LIDOCAINE AVAILABLE, POTASSIUM INFUSED AT SLOWER RATE. INPUTTED NEW ORDER OF POTASSIUM 40MEQ PO. PATIENT TOLERATED MEDICATION WELL. NO COMPLAINT AT THIS TIME. ALL SAFETY MEASURES IN PLACE. BED IN LOWEST POSITION, CALL LIGHT WITHIN REACH. WILL CONTINUE TO MONITOR.
--- NOTE | 2020-08-06 07:15 | NUR ---
PATIENT RESTED INTERMITTENTLY THROUGHOUT THE NIGHT. PT REMAINS AAOX1, ONLY TO PERSON, DEMONSTRATES NO S/S OF HEADACHE/NAUSEA/DIZZINESS. PT CONTINUES TO BE MEDSURG PATIENT, DENIES CHEST PAIN. NO COMPLAINT OF ACUTE PAIN. PATIENT REMAINS WITH RFA IV, SITE INTACT, NO REDNESS OR SWELLING OBSERVED. PATIENT'S DRESSINGS REMAINS INTACT, CDI. ALL SAFETY MEASURES IN PLACE. BED IN LOWEST POSITION, CALL LIGHT WITHIN REACH. WILL ENDORSE TO DAYSHIFT NURSE.
[2020-08-06 07:29] LABS: BASOPHIL % 0.5 % (0.2-1.3); PLATELET COUNT 193 x10^3mcL (179-408)
[2020-08-06 07:34] LABS: CALCIUM 7.9 mg/dL (8.5-10.1); CARBON DIOXIDE 26.1 mmol/L (21-32); CHLORIDE SERUM 106 mmol/L (98-107); CREATININE SERUM 1.9 mg/dL (0.6-1.0); GLUCOSE SERUM 87 mg/dL (74-106); POTASSIUM SERUM 3.4 mmol/L (3.5-5.1); SODIUM SERUM 140 mmol/L (136-145)
--- NOTE | 2020-08-06 08:00 | NUR ---
RECEIVED PATIENT ALERT AND ORIENTED TO SELF. SHE HAS HEARING LOSS AND IS CONFUSED AND DISORIENTED. SHE HAS NO IDEA ABOUT HER WOUNDS AND SHE WAS A BIT ANXIOUS WHEN STAFF EXPLAINED ABOUT THIS ISSUE. LUNG ARE DIMINISHED AND BOWEL SOUNDS ACTIVE. SHE HAS BEEN ON BEDREST AND HAS IV FLUIDS ORDEREDM SGHE GAS BEEN INCONTINENT OF URINE AND BOWEL. SHE HAS LOOSE STOOLS. VITALS AT THIS TIME AT 97.3, 60, 18, 140/71, 95%. PATIENT AHS LOW POTASSIUM LAST NIGHTY AND NOW AT 3.4 AND WILL NEED MORE SUPPLIMENT. AMARA TAHS BEEN ON ZOSYN AND PROTONIX AND VANCO ORDERE AND NO ADVERSE REACTION. PATIENT HAS SHITORY OF STENT PLACMENT AND HYPERTENSION, AFIB, COLONCOLECTOMY AND DIVERTICULITIS WELL IBS. WILL CONTINUE TO HAVE ISOLATION PROTOCAL FOR COVID 19.
[2020-08-06 09:00] VITALS: BP 164/81
[2020-08-06 09:01] LABS: RED CELL DISTRIBUTION WIDTH 16.2 % (12.3-17.7)
--- NOTE | 2020-08-06 10:00 | NUR ---
DR SAW THE PATIENT AND PLAN OF CARE IS FOR HIS TO SEE IF THE PATIENT NEEDS SURGERY. THE PATIENT HE STATE SWILL NEED A WOUND VAC AND THE DR TO [facility] WOUND CARE INDICATED. STAFF REMOVE DTHE PACKING AND THEN REPACKED THE WOUND AND HAD COVERED BOTH SITES WITH A ISLAND DRESSING. PATIANDRZEJ PETTITOEDat NTO APPEAR TO NOT ANY PAIN AT THIS TIME. PATIENT GIVEN ALL HER MEDICATIONS AND NOTED THE WOUND HAD A FOUL ODOR AND A LOT OF SLOUGH AND NECROTIC TISSUE STILL IN THE WOUND BED.
[2020-08-06 13:00] VITALS: BP 135/63
--- NOTE | 2020-08-06 14:15 | NUR ---
RESTING AT THIS TIME AND NO INDICATION OF DISTRESS.
--- NOTE | 2020-08-06 19:45 | NUR ---
RECEIVED PT FROM DAYSHIFT NURSE. PT IS AAOX1, TO PERSON, DENIES HEADACHE/NAUSEA/DIZZINESS. PATIENT HAS HX EPISODES OF CONFUSION AND FORGETFULLNESS. PT IS MED SURG PATIENT, DENIES CHEST PAIN. PULSES ARE EQUAL BILATERALLY NO EDEMA NOTED, PULSES ARE WEAK. PT HAS BILATERALLY DIMIINISHED LUNG SOUNDS, ON RA, DENIES SOB. NO ACUTE DISTRESS NOTED, EVEN AND UNLABORED BREATHING. ABDOMEN IS SOFT AND ROUND, NO PAIN UPON PALPATION. NORMOACTIVE X4 QUADRANTS, LAST BM 08/04 DESCRIBED DIARRHEA FRON FABRICIO. PT HAS PORTILLO CATHETER IN PLACE, BY GRAVITY. PT DEMONSTRATES GENERALIZED WEAKNESS, BEDFAST AT THIS TIME. PT HAS OPEN WOUND TO RIGHT INNER THIGH, LEFT AND RIGHT CALVES, DRESSING IN PLACE, CDI. IV TO LEFT WRIST, SITE ITNACT, NO REDNESS OR SWELLING NOTED. ALL SAFETY MEASURES IN PLACE. BED IN LOWEST POSITION, CALL LIGHT WITHIN REACH. WILL CONTINUE TO MONITOR.
[2020-08-06 21:51] VITALS: BP 158/77
--- NOTE | 2020-08-07 01:15 | NUR ---
BED RESTING IN BED WITH EYES CLOSED. PT REMAINS ON RA, DENIES SOB, NO ACUTE DISTRESS NOTED. BED IN LOWEST POSITION, CALL LIGHT WITHIN REACH. WILL CONTINUE TO MONITOR.
[2020-08-07 06:46] VITALS: BP 159/82
--- NOTE | 2020-08-07 06:58 | NUR ---
PATIENT RESTED INTERMITTENTLY THROUGHOUT THE NIGHT. PT REMAINS AAOX1, TO PERSON, CONFUSED AND FORGETFUL. PT REMAINS ON RA, DENIES SOB. NO DEMONSTRATES OF PAIN. WOUND PHOTOS TAKEN THIS MORNING, IN PATIENT'S BINDER. IV TO LEFT WRIST RUNNING NS AT 60ML/HR. NO ACUTE DISTRESS NOTED AT THIS TIME. PT IS CALM AND COOPERATIVE. ALL SAFETY MEASURES IN PLACE. BED IN LOWEST POSITION, CALL LIGHT WITHIN REACH. WILL ENDORSE TO DAYSHIFT NURSE.
[2020-08-07 07:34] LABS: BASOPHIL % 0.6 % (0.2-1.3); PLATELET COUNT 242 x10^3mcL (179-408)
[2020-08-07 07:58] LABS: CALCIUM 8.5 mg/dL (8.5-10.1); CARBON DIOXIDE 22.8 mmol/L (21-32); CHLORIDE SERUM 110 mmol/L (98-107); CREATININE SERUM 2.1 mg/dL (0.6-1.0); GLUCOSE SERUM 84 mg/dL (74-106); POTASSIUM SERUM 3.7 mmol/L (3.5-5.1); SODIUM SERUM 144 mmol/L (136-145)
[2020-08-07 08:20] LABS: RED CELL DISTRIBUTION WIDTH 15.9 % (12.3-17.7)
[2020-08-07 08:48] VITALS: BP 175/92
--- NOTE | 2020-08-07 09:30 | NUR ---
CONFUSED, PLEASANT, HAD LOOSE BM DARK GREENISH STOOL IN COLOR, KATE CARE PROVIDED, Z GUARD APPLIED TO KATE AREA FOR ECORIATION. DRSG ON LEFT INNER THIGN CHANGED, DRSG ON RIGHT AND LEFT CALVES NOTED CDI. REPOSITIONED, KEPT SHAUNA OFFLOADED. REORIENTATION PROVIDED. CALL LIGHT PLACED WITHIN EASY REACH. SIDERAILS UP X3.
--- NOTE | 2020-08-07 13:00 | NUR ---
FED BY IMTIAZ JACKSON, TOLERATED WELL. IV-ABX ZOSYN INFUSING WELL. REPOSITIONED, KEPT BLE OFFLOADED ON 2 PILLOWS.
[2020-08-07 13:02] VITALS: BP 170/82
[2020-08-07 16:43] VITALS: BP 112/94
--- NOTE | 2020-08-07 17:52 | NUR ---
REMAINS CONFUSED BUT VERY PLEASANT, NOTED PATIENT TALKED TO HERSELF OFTEN. NO ANY DISTRESS ON ROOM AIR. NO S/S OF PAIN. DSRG ON LEFT INNTER THIGH AND SHAUNA CALVES NOTED CDI. REPOSITIONED Q 2HRS. ALL SCHEDULED MEDS GIVEN. IVF NS AT 60ML/HR INFUSING WELL ON LEFT WRIST IV SITE.
--- NOTE | 2020-08-07 19:30 | NUR ---
RECEIVED REPORT FROM DAY SHIFT RN. PT IS AOX3, BUT FORGETFUL. ABLE TO ANSWER ALL QUESTIONS AT THIS TIME. PT IS ON RA, AND BREATHING EVENLY. NO ACUTE DISTRESS IS NOTED. DENIES ANY PAIN. PT IS ASKING IF I CAN CALL HER LISSET. WAS ABLE TO DIRECTOR OF HEAD START AND PHONE HANDED OVER TO PT. WILL ASSESS AND MONITOR PT THROUGHOUT THE SHIFT. CALL LIGHT IS WITHIN REACH AND BED IN LOW POSITION.
[2020-08-07 21:20] VITALS: BP 165/72
[2020-08-08 06:00] VITALS: BP 158/71
--- NOTE | 2020-08-08 06:20 | NUR ---
PT RESTING WELL THIS MORNING. NO ACUTE DISTRESS NOTED DURING THE NIGHT. DR PEDROZA ON THE FLOOR TO SEE PT THIS MORNING AND REQUESTING FOR SENIOR ENERGY TRADER TO CONTACT HIM WHEN SHE COMES.
[2020-08-08 07:27] LABS: BASOPHIL % 0.6 % (0.2-1.3); PLATELET COUNT 230 x10^3mcL (179-408)
[2020-08-08 08:21] LABS: CALCIUM 8.1 mg/dL (8.5-10.1); CARBON DIOXIDE 23.1 mmol/L (21-32); CHLORIDE SERUM 110 mmol/L (98-107); GLUCOSE SERUM 91 mg/dL (74-106); POTASSIUM SERUM 3.5 mmol/L (3.5-5.1); SODIUM SERUM 144 mmol/L (136-145)
[2020-08-08 08:23] VITALS: BP 120/57
[2020-08-08 08:40] LABS: RED CELL DISTRIBUTION WIDTH 16.1 % (12.3-17.7)
--- NOTE | 2020-08-08 09:33 | NUR ---
PT AAO X3 PT BETTER TODAY WITH MORE LUCIDNESS. PT ABLE TO COMMUNICATE MORE EFFECTIVELY. PT DENIES ANY CHEST PAIN, SOB, N/V/D. LUNG SOUNDS CLEAR. GI ACTIVE BOWEL SOUNDS ON ALL QUADRANTS LAST BM 08/07/20. PT HAS PORTILLO CATH PLACED. PT HAS GEN WEAKNESS BED BOUND. PT HAS BILAT CALF WOUNDS AND RIGH INNER THIGH WOUND WITH DRAINAGE. PT DENIES ANY PAIN. PT HAS S/L ON LEFT WRIST 22G. PT COVID POS. ON DROPLET AND CONTACT ISOLATION.
--- NOTE | 2020-08-08 11:00 | NUR ---
PATIENT HAD LOOSE BM, KATE CARE PROVIDED, DRSG ON LEFT INNER THIGH, RIGHT CALF AND LEFT CALF REMOVED, WET TO DRY DRESSING DONE, PACKED WITH ADAPTIC DREESSING, COVERED WITH DRY 4X4 GAUZES. Z GUARD APPLIED TO KATE AREA. STATED HAVING MILD PAIN ON RLE, WILL BE MEDICATED PRN. NEW GOWN AND LINENS CHANGED. REPOSITIONED. KEPT COMFORTABLE. CALL LIGHT PLACED WITHIN EASY REACH. SIDERAILS UP X2.
[2020-08-08] MEDS ORDERED: VANCOMYCIN1 GM/2001 IV (11:11)
--- NOTE | 2020-08-08 11:32 | NUR ---
TYLENOL 650MG PO GIVEN FOR RLE PAIN. WILL CONTINUE TO MONITOR.
[2020-08-08 12:02] VITALS: BP 123/70
[2020-08-08 12:05] VITALS: BP 123/70
[2020-08-08 12:09] VITALS: BP 123/70
--- NOTE | 2020-08-08 12:26 | NUR ---
CALLED PATIENT'S DAUGHTER ARNOLD REGARDING A TRANSFER TO [facility] AT 2PM TODAY. PER PATIENT'S DAUGHTER ARNOLD SHE ALREADY INFORMED BY LEAH-LAI HOPKINS.
--- NOTE | 2020-08-08 12:50 | NUR ---
REPORT GIVEN TO NURSE STERLING AT [facility].
--- NOTE | 2020-08-08 14:30 | NUR ---
PT PICKED UP BY EMT IN [facility], S/L ON LEFT WRIST FLUSHED AND PATENT. PERSONAL BELONGINGS SENT WITH PT. CONDITION STABLE, UPON TRANSFER.
== END 2020-08-08 14:37 | DRG 570 ==
LOC: ED 12:50 → MU 20:14 → DU 20:14 → MU 08-04 18:01
PROVIDERS: Emergency Medicine; ADMIT Family Medicine; ATTEND Family Medicine
PROC: 0JBN0ZZ Excision of Right Lower Leg Subcutaneous Tissue and Fascia, Open Approach (ICD-10-PCS; principal; 2020-08-01)
PROC: 0JBC0ZZ Excision of Pelvic Region Subcutaneous Tissue and Fascia, Open Approach (ICD-10-PCS; 2020-08-03)
DX: S81.801A Unspecified open wound, right lower leg, initial encounter (principal); E43 Unspecified severe protein-calorie malnutrition; N17.0 Acute kidney failure with tubular necrosis; U07.1 COVID-19; J96.01 Acute respiratory failure with hypoxia; I73.9 Peripheral vascular disease, unspecified; E86.0 Dehydration; S31.104A Unspecified open wound of abdominal wall, left lower quadrant without penetration into peritoneal cavity, initial encounter; Z88.1 Allergy status to other antibiotic agents; Z91.040 Latex allergy status; Z88.5 Allergy status to narcotic agent; Z88.2 Allergy status to sulfonamides; Z88.8 Allergy status to other drugs, medicaments and biological substances; Z91.048 Other nonmedicinal substance allergy status; E78.5 Hyperlipidemia, unspecified; I10 Essential (primary) hypertension; K21.9 Gastro-esophageal reflux disease without esophagitis; Z79.01 Long term (current) use of anticoagulants; F41.9 Anxiety disorder, unspecified; F32.9 Major depressive disorder, single episode, unspecified; B95.2 Enterococcus as the cause of diseases classified elsewhere; B95.62 Methicillin resistant Staphylococcus aureus infection as the cause of diseases classified elsewhere; B37.9 Candidiasis, unspecified; I48.0 Paroxysmal atrial fibrillation; E87.6 Hypokalemia; E83.42 Hypomagnesemia; X58.XXXA Exposure to other specified factors, initial encounter
CPT/HCPCS: 83880; 84439; 97110-GP; 97112-GP; 97530-GP; C9113; G0378; J0360; J1450; J2001; J2060; J2405; J2543; J3010; J3370; J3475; J3480; J3490; J7030; J7040; U0003